=== PATIENT | female | born 1935 | race American Indian/Alaskan Native ===

== ENCOUNTER 2017-05-30 15:52 | Inpatient (IN) | payer MEDICARE ==
[2017-05-30] MEDS ORDERED: NACL 0.9% 1000 ML 1,000 ML ONE ×3 (16:19→16:20)
[2017-05-30] MEDS ORDERED: VANCOMYCIN/NS 1 GM/250 ML 1 GM/250 ML BAG IV ONE (16:32)
[2017-05-30] MEDS ORDERED: NACL 0.9% 1000 ML 1,000 ML IV ONE ×2 (16:32→18:19)
[2017-05-30] MEDS ORDERED: LEVAQUIN 750MG/150ML 750 MG/150 ML BAG IV ONE (16:32)
[2017-05-30] MEDS ORDERED: TYLENOL FEEDTUBE ONE (16:54)
--- NOTE | 2017-05-30 16:56 | Emergency Department Report ---
ED Altered Mental Status HPI - General Chief Complaint: Altered Mental Status Stated Complaint: AMS/LOW BLOOD PRESSURE/HIGH BLOOD SUGAR Time Seen by Provider: 05/30/17 16:13 Source: EMS, old records reviewed (creatinine 0.8 04/15/2017. Previous admission reviewed) Mode of arrival: Stretcher Limitations: Altered Mental Status, Physical Limitation - History of Present Illness Initial Comments: 81-year-old female past medical history of chronic COPD with 2.5 L oxygen at home, CAD status post CABG, CHF, hypertension, dyslipidemia, PEG placement, insulin-dependent diabetes presents to the hospital with altered mental status and fever. Patient has been on Cipro twice a day since May 20 for UTI via PEG tube. Today patient had elevated blood sugar at [facility] with diminished mental status. At her baseline she makes eye contact and speaks. She also has a sacral decubitus wound. Patient is DO NOT RESUSCITATE ( signed 05/04/17) her wishes as per daughter. Patient was recently admitted here 03/30 until 04/19 with acute respiratory failure secondary to hypercapnia for COPD and severe acidemia. Patient had a cardiac arrest x2 during admission and had prolonged course of intubation and ATN renal failure, echo showed preserved EF but severe pulmonary hypertension. Patient had Escherichia coli urine that was resistant to Levaquin, tetracycline, Bactrim, cipro, Unasyn and ampicillin. It was sensitive to cephalosporins, ertapenem, imipenem, macrobid, Zosyn, tigecycline, tobramycin, and gentamicin. Patient is unable to communicate due to current mental status. Daughter at the bedside and agrees with DO NOT RESUSCITATE status including no intubation or central line. Case also briefly discussed with Dr. Avila who agrees that DO NOT RESUSCITATE is no intubation or central line. - Related Data Home Medications Medication Instructions Recorded Confirmed Last Taken Clopidogrel Bisulfate [Plavix] 75 mg PO DAILY 12/25/15 03/30/17 12/24/15 Insulin Glargine [Lantus VIAL] 20 unit SUB-Q QHS 12/25/15 03/30/17 Unknown Metoprolol [Lopressor TAB] 50 mg PO DAILY 12/25/15 03/30/17 Unknown Potassium Chloride [K-Dur] 20 meq PO QDAY 12/25/15 03/30/17 Unknown Rosuvastatin (Nf) [Crestor] 20 mg PO QDAY 12/25/15 03/30/17 Unknown Furosemide [Lasix TAB] 20 mg PO PRN PRN 03/30/17 03/30/17 Unknown Gabapentin [Neurontin] 300 mg PO TID 03/30/17 03/30/17 Unknown Losartan [Cozaar] 50 mg PO QDAY 03/30/17 03/30/17 Unknown Montelukast [Singulair] 10 mg PO QHS 03/30/17 03/30/17 Unknown amLODIPine [Norvasc] 5 mg PO QDAY 03/30/17 03/30/17 Unknown Previous Rx's Medication Instructions Recorded Last Taken Type ALBUTEROL Inhaler [ProAir HFA 2 puff IH QID PRN #1 inhalation 12/27/15 Unknown Rx Inhaler] Fluticasone/Salmeterol [Advair 1 puff IH BID #1 disk.w.dev 12/27/15 Unknown Rx Diskus 100-50 mcg] Allergies Allergy/AdvReac Type Severity Reaction Status Date / Time Penicillins Allergy Unknown Verified 12/25/15 19:51 terbinafine HCl Allergy Unknown Verified 12/25/15 19:51 [From Lamisil] ED Review of Systems ROS: Stated complaint: AMS/LOW BLOOD PRESSURE/HIGH BLOOD SUGAR Other details as noted in HPI Comment: Unobtainable due to pts medical conditions (altered, nonverbal currently) ED Past Medical Hx - Past Medical History Hx Hypertension: Yes Hx Congestive Heart Failure: Yes Hx Diabetes: Yes Hx Deep Vein Thrombosis: No Hx COPD: Yes - Surgical History Hx Coronary Stent: Yes (7 stents placed 2010) Hx Open Heart Surgery: Yes Hx Pacemaker: No Hx Internal Defibrillator: No Additional Surgical History: 7 heart stents - Social History Smoking Status: Former Smoker Substance Use Type: None, Alcohol - Medications Home Medications: Home Medications Medication Instructions Recorded Confirmed Last Taken Type Clopidogrel Bisulfate [Plavix] 75 mg PO DAILY 12/25/15 03/30/17 12/24/15 History Insulin Glargine [Lantus VIAL] 20 unit SUB-Q QHS 12/25/15 03/30/17 Unknown History Metoprolol [Lopressor TAB] 50 mg PO DAILY 12/25/15 03/30/17 Unknown History Potassium Chloride [K-Dur] 20 meq PO QDAY 12/25/15 03/30/17 Unknown History Rosuvastatin (Nf) [Crestor] 20 mg PO QDAY 12/25/15 03/30/17 Unknown History ALBUTEROL Inhaler [ProAir HFA 2 puff IH QID PRN #1 inhalation 12/27/15 03/30/17 Unknown Rx Inhaler] Fluticasone/Salmeterol [Advair 1 puff IH BID #1 disk.w.dev 12/27/15 03/30/17 Unknown Rx Diskus 100-50 mcg] Furosemide [Lasix TAB] 20 mg PO PRN PRN 03/30/17 03/30/17 Unknown History Gabapentin [Neurontin] 300 mg PO TID 03/30/17 03/30/17 Unknown History Losartan [Cozaar] 50 mg PO QDAY 03/30/17 03/30/17 Unknown History Montelukast [Singulair] 10 mg PO QHS 03/30/17 03/30/17 Unknown History amLODIPine [Norvasc] 5 mg PO QDAY 03/30/17 03/30/17 Unknown History ED Physical Exam - General Limitations: Altered Mental Status, Physical Limitation - Other Other exam information: General: Patient is lethargic, no response to pain Head exam: Atraumatic, normocephalic Eyes exam: Normal appearance, pupils equal reactive to light ENT: Dry mucous membrane Neck exam: Normal inspection Respiratory exam: Clear breath sounds bilaterally Cardiovascular: Regular rate and rhythm Abdomen: Soft, nondistended, and nontender, positive peg Normal bowel signs Extremity: No spontaneous movement, no deformity Back: Normal Inspection Neurologic: Lethargic, patient is not withdraw to pain, no spontaneous movement of extremities. Psychiatric: normal affect, normal mood Skin: Sacral decubitus stage II with yellow exudate 5 x 4 cm ED Course Vital Signs 05/30/17 05/30/17 05/30/17 13:57 14:00 14:16 Temperature Pulse Rate 73 69 77 Respiratory 11 L 14 17 Rate Blood Pressure 115/73 115/73 118/73 Blood Pressure [Right] O2 Sat by Pulse 95 98 96 Oximetry 05/30/17 05/30/17 05/30/17 16:07 16:15 16:31 Temperature Pulse Rate 102 H 99 H 95 H Respiratory 35 H 35 H 28 H Rate Blood Pressure 82/44 118/73 Blood Pressure [Right] O2 Sat by Pulse Oximetry 05/30/17 05/30/17 05/30/17 16:36 16:55 17:05 Temperature 100.3 F H Pulse Rate 92 H 90 Respiratory 31 H 21 19 Rate Blood Pressure Blood Pressure 82/44 98/47 102/45 [Right] O2 Sat by Pulse 2 L 54 L Oximetry 05/30/17 05/30/17 05/30/17 17:30 18:47 19:17 Temperature 100.3 F H Pulse Rate 89 97 H Respiratory 19 21 23 Rate Blood Pressure Blood Pressure 131/56 127/61 [Right] O2 Sat by Pulse Oximetry 05/30/17 19:18 Temperature Pulse Rate 96 H Respiratory Rate Blood Pressure Blood Pressure [Right] O2 Sat by Pulse Oximetry - Reevaluation(s) Reevaluation #1: 05/30/17 17:18 BP is improving with 1 L normal saline. Systolic above 100. Reevaluation #2: 05/30/17 17:50 Systolic blood pressure remains above 100 after 1 L of normal saline. She patient is now making eye contact and trying to speak. - ABG Interpretation Ph: 7.48 PCO2: 43 PO2: 248 Bicarbonate: 35 Interpretation: normal Additional Comments: ABG performed on nonrebreather. Oxygen changed to venti mask with 31% O2 ( orange) after abg results - Lab Data Result diagrams: 05/30/17 17:46 05/30/17 17:46 Lab Results 05/30/17 05/30/17 05/30/17 Range/Units 17:37 17:46 17:46 WBC 28.1 H (4.5-11.0) K/mm3 RBC 3.45 L (3.65-5.03) M/mm3 Hgb 10.5 (10.1-14.3) gm/dl Hct 35.0 (30.3-42.9) % MCV 101 H (79-97) fl MCH 30 (28-32) pg MCHC 30 (30-34) % RDW 19.6 H (13.2-15.2) % Plt Count 356 (140-440) K/mm3 Add Manual Diff Complete Total Counted 200 Seg Neuts % (Manual) 54.0 (40.0-70.0) % Band Neutrophils % 21.5 % Lymphocytes % (Manual) 16.5 (13.4-35.0) % Reactive Lymphs % (Man) 0 % Monocytes % (Manual) 8.0 H (0.0-7.3) % Eosinophils % (Manual) 0 (0.0-4.3) % Basophils % (Manual) 0 (0.0-1.8) % Metamyelocytes % 0 % Myelocytes % 0 % Promyelocytes % 0 % Blast Cells % 0 % Nucleated RBC % 2.0 H (0.0-0.9) % Seg Neutrophils # Man 15.2 H (1.8-7.7) K/mm3 Band Neutrophils # 6.0 K/mm3 Lymphocytes # (Manual) 4.6 (1.2-5.4) K/mm3 Abs React Lymphs (Man) 0.0 K/mm3 Monocytes # (Manual) 2.2 H (0.0-0.8) K/mm3 Eosinophils # (Manual) 0.0 (0.0-0.4) K/mm3 Basophils # (Manual) 0.0 (0.0-0.1) K/mm3 Metamyelocytes # 0.0 K/mm3 Myelocytes # 0.0 K/mm3 Promyelocytes # 0.0 K/mm3 Blast Cells # 0.0 K/mm3 WBC Morphology Not Reportable Hypersegmented Neuts Not Reportable Hyposegmented Neuts Not Reportable Hypogranular Neuts Not Reportable Smudge Cells Not Reportable Toxic Granulation Not Reportable Toxic Vacuolation Not Reportable Dohle Bodies Not Reportable Pelger-Huet Anomaly Not Reportable Carlos Rods Not Reportable Platelet Estimate Consistent w auto Clumped Platelets Not Reportable Plt Clumps, EDTA Not Reportable Large Platelets Few Giant Platelets Few Platelet Satelliting Not Reportable Plt Morphology Comment Not Reportable RBC Morphology Not Reportable Dimorphic RBCs Not Reportable Polychromasia Few Hypochromasia 2+ Poikilocytosis 1+ Anisocytosis 1+ Microcytosis Not Reportable Macrocytosis Not Reportable Spherocytes Not Reportable Pappenheimer Bodies Not Reportable Sickle Cells Not Reportable Target Cells Not Reportable Tear Drop Cells Not Reportable Ovalocytes 1+ Helmet Cells Not Reportable Ortiz-Riverlea Bodies Not Reportable [place] Rings Not Reportable [place] Cells Not Reportable Bite Cells Not Reportable Crenated Cell Not Reportable Elliptocytes Not Reportable Acanthocytes (Spur) Not Reportable Rouleaux Not Reportable Hemoglobin C Crystals Not Reportable Schistocytes Not Reportable Malaria parasites Not Reportable Rhys Bodies Not Reportable Hem Pathologist Commnt No PT (12.2-14.9) Sec. INR (0.87-1.13) APTT (24.2-36.6) Sec. POC ABG pH 7.498 H (7.35-7.45) POC ABG pCO2 45.3 H (35-45) POC ABG pO2 248 H (80-105) POC ABG HCO3 35.1 POC ABG Total CO2 36 POC ABG O2 Sat 100 POC ABG Base Excess 12 VBG pH (7.320-7.420) FiO2 100 % Sodium 168 H* (137-145) mmol/L Potassium 4.8 (3.6-5.0) mmol/L Chloride 121.7 H (98-107) mmol/L Carbon Dioxide 29 (22-30) mmol/L Anion Gap 22 mmol/L BUN 88 H (7-17) mg/dL Creatinine 1.6 H (0.7-1.2) mg/dL Estimated GFR 37 ml/min BUN/Creatinine Ratio 55 % Glucose 296 H (65-100) mg/dL Lactic Acid (0.7-2.0) mmol/L Calcium 8.6 (8.4-10.2) mg/dL Magnesium (1.7-2.3) mg/dL Total Bilirubin 0.20 (0.1-1.2) mg/dL AST 65 H (5-40) units/L ALT 43 (7-56) units/L Alkaline Phosphatase 114 (35-129) units/L Total Creatine Kinase 982 H (30-135) units/L CK-MB (CK-2) 3.7 (0.0-4.0) ng/mL CK-MB (CK-2) Rel Index 0.3 (0-4) Troponin T 0.210 H* (0.00-0.029) ng/mL Total Protein 6.7 (6.3-8.2) g/dL Albumin 3.0 L (3.9-5) g/dL Albumin/Globulin Ratio 0.8 % Triglycerides 241 H (2-149) mg/dL Cholesterol 107 (50-199) mg/dL LDL Cholesterol Direct 20 L (50-130) mg/dL HDL Cholesterol 39 L (40-59) mg/dL Cholesterol/HDL Ratio 2.74 % Urine Color (Yellow) Urine Turbidity (Clear) Urine pH (5.0-7.0) Ur Specific [place] (1.003-1.030) Urine Protein (Negative) mg/dL Urine Glucose (UA) (Negative) mg/dL Urine Ketones (Negative) mg/dL Urine Blood (Negative) Urine Nitrite (Negative) Urine Bilirubin (Negative) Urine Urobilinogen (<2.0) mg/dL Ur Leukocyte Esterase (Negative) Urine WBC (Auto) (0.0-6.0) /HPF Urine RBC (Auto) (0.0-6.0) /HPF U Epithel Cells (Auto) (0-13.0) /HPF Urine Bacteria (Auto) (Negative) /HPF Urine WBC Clumps /HPF Calcium Oxalate Crystal Urine Mucus /HPF 05/30/17 05/30/17 05/30/17 Range/Units 17:46 17:46 17:46 WBC (4.5-11.0) K/mm3 RBC (3.65-5.03) M/mm3 Hgb (10.1-14.3) gm/dl Hct (30.3-42.9) % MCV (79-97) fl MCH (28-32) pg MCHC (30-34) % RDW (13.2-15.2) % Plt Count (140-440) K/mm3 Add Manual Diff Total Counted Seg Neuts % (Manual) (40.0-70.0) % Band Neutrophils % % Lymphocytes % (Manual) (13.4-35.0) % Reactive Lymphs % (Man) % Monocytes % (Manual) (0.0-7.3) % Eosinophils % (Manual) (0.0-4.3) % Basophils % (Manual) (0.0-1.8) % Metamyelocytes % % Myelocytes % % Promyelocytes % % Blast Cells % % Nucleated RBC % (0.0-0.9) % Seg Neutrophils # Man (1.8-7.7) K/mm3 Band Neutrophils # K/mm3 Lymphocytes # (Manual) (1.2-5.4) K/mm3 Abs React Lymphs (Man) K/mm3 Monocytes # (Manual) (0.0-0.8) K/mm3 Eosinophils # (Manual) (0.0-0.4) K/mm3 Basophils # (Manual) (0.0-0.1) K/mm3 Metamyelocytes # K/mm3 Myelocytes # K/mm3 Promyelocytes # K/mm3 Blast Cells # K/mm3 WBC Morphology Hypersegmented Neuts Hyposegmented Neuts Hypogranular Neuts Smudge Cells Toxic Granulation Toxic Vacuolation Dohle Bodies Pelger-Huet Anomaly Carlos Rods Platelet Estimate Clumped Platelets Plt Clumps, EDTA Large Platelets Giant Platelets Platelet Satelliting Plt Morphology Comment RBC Morphology Dimorphic RBCs Polychromasia Hypochromasia Poikilocytosis Anisocytosis Microcytosis Macrocytosis Spherocytes Pappenheimer Bodies Sickle Cells Target Cells Tear Drop Cells Ovalocytes Helmet Cells Ortiz-Riverlea Bodies [place] Rings [place] Cells Bite Cells Crenated Cell Elliptocytes Acanthocytes (Spur) Rouleaux Hemoglobin C Crystals Schistocytes Malaria parasites Rhys Bodies Hem Pathologist Commnt PT 15.8 H (12.2-14.9) Sec. INR 1.20 H (0.87-1.13) APTT 34.0 (24.2-36.6) Sec. POC ABG pH (7.35-7.45) POC ABG pCO2 (35-45) POC ABG pO2 (80-105) POC ABG HCO3 POC ABG Total CO2 POC ABG O2 Sat POC ABG Base Excess VBG pH 7.290 L (7.320-7.420) FiO2 % Sodium (137-145) mmol/L Potassium (3.6-5.0) mmol/L Chloride (98-107) mmol/L Carbon Dioxide (22-30) mmol/L Anion Gap mmol/L BUN (7-17) mg/dL Creatinine (0.7-1.2) mg/dL Estimated GFR ml/min BUN/Creatinine Ratio % Glucose (65-100) mg/dL Lactic Acid 3.40 H* (0.7-2.0) mmol/L Calcium (8.4-10.2) mg/dL Magnesium (1.7-2.3) mg/dL Total Bilirubin (0.1-1.2) mg/dL AST (5-40) units/L ALT (7-56) units/L Alkaline Phosphatase (35-129) units/L Total Creatine Kinase (30-135) units/L CK-MB (CK-2) (0.0-4.0) ng/mL CK-MB (CK-2) Rel Index (0-4) Troponin T (0.00-0.029) ng/mL Total Protein (6.3-8.2) g/dL Albumin (3.9-5) g/dL Albumin/Globulin Ratio % Triglycerides (2-149) mg/dL Cholesterol (50-199) mg/dL LDL Cholesterol Direct (50-130) mg/dL HDL Cholesterol (40-59) mg/dL Cholesterol/HDL Ratio % Urine Color (Yellow) Urine Turbidity (Clear) Urine pH (5.0-7.0) Ur Specific [place] (1.003-1.030) Urine Protein (Negative) mg/dL Urine Glucose (UA) (Negative) mg/dL Urine Ketones (Negative) mg/dL Urine Blood (Negative) Urine Nitrite (Negative) Urine Bilirubin (Negative) Urine Urobilinogen (<2.0) mg/dL Ur Leukocyte Esterase (Negative) Urine WBC (Auto) (0.0-6.0) /HPF Urine RBC (Auto) (0.0-6.0) /HPF U Epithel Cells (Auto) (0-13.0) /HPF Urine Bacteria (Auto) (Negative) /HPF Urine WBC Clumps /HPF Calcium Oxalate Crystal Urine Mucus /HPF 05/30/17 05/30/17 Range/Units 17:46 18:17 WBC (4.5-11.0) K/mm3 RBC (3.65-5.03) M/mm3 Hgb (10.1-14.3) gm/dl Hct (30.3-42.9) % MCV (79-97) fl MCH (28-32) pg MCHC (30-34) % RDW (13.2-15.2) % Plt Count (140-440) K/mm3 Add Manual Diff Total Counted Seg Neuts % (Manual) (40.0-70.0) % Band Neutrophils % % Lymphocytes % (Manual) (13.4-35.0) % Reactive Lymphs % (Man) % Monocytes % (Manual) (0.0-7.3) % Eosinophils % (Manual) (0.0-4.3) % Basophils % (Manual) (0.0-1.8) % Metamyelocytes % % Myelocytes % % Promyelocytes % % Blast Cells % % Nucleated RBC % (0.0-0.9) % Seg Neutrophils # Man (1.8-7.7) K/mm3 Band Neutrophils # K/mm3 Lymphocytes # (Manual) (1.2-5.4) K/mm3 Abs React Lymphs (Man) K/mm3 Monocytes # (Manual) (0.0-0.8) K/mm3 Eosinophils # (Manual) (0.0-0.4) K/mm3 Basophils # (Manual) (0.0-0.1) K/mm3 Metamyelocytes # K/mm3 Myelocytes # K/mm3 Promyelocytes # K/mm3 Blast Cells # K/mm3 WBC Morphology Hypersegmented Neuts Hyposegmented Neuts Hypogranular Neuts Smudge Cells Toxic Granulation Toxic Vacuolation Dohle Bodies Pelger-Huet Anomaly Carlos Rods Platelet Estimate Clumped Platelets Plt Clumps, EDTA Large Platelets Giant Platelets Platelet Satelliting Plt Morphology Comment RBC Morphology Dimorphic RBCs Polychromasia Hypochromasia Poikilocytosis Anisocytosis Microcytosis Macrocytosis Spherocytes Pappenheimer Bodies Sickle Cells Target Cells Tear Drop Cells Ovalocytes Helmet Cells Ortiz-Riverlea Bodies [place] Rings [place] Cells Bite Cells Crenated Cell Elliptocytes Acanthocytes (Spur) Rouleaux Hemoglobin C Crystals Schistocytes Malaria parasites Rhys Bodies Hem Pathologist Commnt PT (12.2-14.9) Sec. INR (0.87-1.13) APTT (24.2-36.6) Sec. POC ABG pH (7.35-7.45) POC ABG pCO2 (35-45) POC ABG pO2 (80-105) POC ABG HCO3 POC ABG Total CO2 POC ABG O2 Sat POC ABG Base Excess VBG pH (7.320-7.420) FiO2 % Sodium (137-145) mmol/L Potassium (3.6-5.0) mmol/L Chloride (98-107) mmol/L Carbon Dioxide (22-30) mmol/L Anion Gap mmol/L BUN (7-17) mg/dL Creatinine (0.7-1.2) mg/dL Estimated GFR ml/min BUN/Creatinine Ratio % Glucose (65-100) mg/dL Lactic Acid (0.7-2.0) mmol/L Calcium (8.4-10.2) mg/dL Magnesium 3.50 H (1.7-2.3) mg/dL Total Bilirubin (0.1-1.2) mg/dL AST (5-40) units/L ALT (7-56) units/L Alkaline Phosphatase (35-129) units/L Total Creatine Kinase (30-135) units/L CK-MB (CK-2) (0.0-4.0) ng/mL CK-MB (CK-2) Rel Index (0-4) Troponin T (0.00-0.029) ng/mL Total Protein (6.3-8.2) g/dL Albumin (3.9-5) g/dL Albumin/Globulin Ratio % Triglycerides (2-149) mg/dL Cholesterol (50-199) mg/dL LDL Cholesterol Direct (50-130) mg/dL HDL Cholesterol (40-59) mg/dL Cholesterol/HDL Ratio % Urine Color [place] (Yellow) Urine Turbidity Clear (Clear) Urine pH 5.0 (5.0-7.0) Ur Specific [place] 1.025 (1.003-1.030) Urine Protein 100 mg/dl (Negative) mg/dL Urine Glucose (UA) 50 (Negative) mg/dL Urine Ketones Neg (Negative) mg/dL Urine Blood Neg (Negative) Urine Nitrite Neg (Negative) Urine Bilirubin Neg (Negative) Urine Urobilinogen 2.0 (<2.0) mg/dL Ur Leukocyte Esterase Lg (Negative) Urine WBC (Auto) 73.0 H (0.0-6.0) /HPF Urine RBC (Auto) 12.0 (0.0-6.0) /HPF U Epithel Cells (Auto) 4.0 (0-13.0) /HPF Urine Bacteria (Auto) 4+ (Negative) /HPF Urine WBC Clumps 2+ /HPF Calcium Oxalate Crystal 1+ Urine Mucus 3+ /HPF - EKG Data -: EKG Interpreted by Or EKG shows normal: sinus rhythm, axis (qrs 4), QRS complexes (103), ST-T waves ( no stemi) Rate: normal (90) When compared to previous EKG there are: no significant change (compared to 03/31) - Radiology Data Radiology results: image reviewed (chest x-ray: No acute findings, previous CABG , mild increased interstitial markings. No infiltrate (read by me)) - Medical Decision Making sepsis without septic shock: Levaquin and vancomycin ordered initially for sepsis/source was being identified. After review of urine sensitivities from April gentamicin was added to cover for fluoroquinolone resistant UTI given recent history of Cipro treated UTI at the [facility]. cxr neg for infiltrate -no signs of C02 retention or significant hypoxia at this time. stable on venturi mask (orange) -1 L of normal saline ED also included 1 normal saline followed by 120 mL per hour order -asa 325mg (for trop elevation), tylenol (for fever) via feedign tube -mild ck elevation, ivf initiated -Mental status and BP improving with fluids -elevated trop likely due to ARF, no stemi on ekg but repeat trop indicated. -ARF likely related to dehydration vs sepsis given elevated BUN and NA - Differential Diagnosis UTI, sepsis, pneumonia, DKA Critical Care Time: Yes Critical care time in (mins) excluding proc time.: 35 Critical care attestation.: If time is entered above; I have spent that time in minutes in the direct care of this critically ill patient, excluding procedure time. ED Disposition Clinical Impression: Sepsis, Diabetes, Hx of CABG, Altered mental status, Dehydration, Acute renal insufficiency, Elevated troponin, Elevated lactic acid level, Elevated CK, DNR ( do not resuscitate), UTI (urinary tract infection) Disposition: DC-09 OP ADMIT IP TO THIS HOSP Is pt being admited?: Yes Condition: Stable Time of Disposition: 18:26 (Dr Salinas/hospitalist)
[2017-05-30 17:38] LABS: ISTAT Base Excess 12; ISTAT HCO3 35.1; ISTAT PCO2 45.3 (35-45); ISTAT PH 7.498 (7.35-7.45); ISTAT PO2 248 (80-105); ISTAT SO2 100; ISTAT TCO2 36
[2017-05-30 17:54] LABS: Mean Corpuscular HGB Conc 30 % (30-34); Mean Corpuscular Hemoglobin 30 pg (28-32); Mean Corpuscular Volume 101 fl (79-97); Platelet Count 356 K/mm3 (140-440); Red Blood Count 3.45 M/mm3 (3.65-5.03); Red Cell Distribution Width 19.6 % (13.2-15.2)
--- NOTE | 2017-05-30 17:57 | XRay Report ---
FINAL REPORT EXAM: XR CHEST 1V AP HISTORY: hypotension, sepsis, ams TECHNIQUE: upright single view chest PRIORS: Comparison is December 25, 2015 FINDINGS: Cardiac and mediastinal contours are unremarkable. No focal pulmonary infiltrate is identified. No pleural fluid collection seen. Pulmonary vasculature is unremarkable. Sternotomy wires and surgical clips are noted. IMPRESSION: Negative single-view chest
[2017-05-30] MEDS ORDERED: VANCOMYCIN 1,750 MG in NACL 0.9% 500 ML 500 ML IV ONE (18:00)
[2017-05-30] MEDS ORDERED: GARAMYCIN 80 MG in NACL 0.9% 100 ML IV ONE (18:00)
[2017-05-30 18:04] LABS: INR 1.2 (0.87-1.13)
[2017-05-30 18:07] LABS: Creatine Kinase MB 3.7 ng/mL (0.0-4.0)
[2017-05-30 18:09] LABS: Albumin/Globulin Ratio 0.8 %; Bilirubin,Total 0.2 mg/dL (0.1-1.2); Calcium 8.6 mg/dL (8.4-10.2); Chloride 121.7 mmol/L (98-107); Potassium 4.8 mmol/L (3.6-5.0); Total Protein 6.7 g/dL (6.3-8.2)
[2017-05-30 18:10] LABS: Hemoglobin 10.5 gm/dl (10.1-14.3); White Blood Count 28.1 K/mm3 (4.5-11.0)
[2017-05-30] MEDS ORDERED: ASPIRIN FEEDTUBE ONE (18:22)
[2017-05-30 18:39] LABS: Basophils % (Manual) 0 % (0.0-1.8); Blastocytes % (Manual) 0 %
[2017-05-30 18:40] LABS: Eosinophils % (Manual) 0 % (0.0-4.3)
[2017-05-30 18:41] LABS: Anisocytosis 1+; Hypochromasia 2+; Ovalocytes 1+; Poikilocytosis 1+; Polychromasia Few
[2017-05-30 18:43] LABS: Diff Status Complete; Giant Platelets Few; Large Platelets Few; Platelet Estimate Consistent w Auto
[2017-05-30 19:32] LABS: Bacteria,Urine 4+ /HPF (Negative); Bilirubin,Urine NEG (Negative); Blood,Urine NEG (Negative); Ketones,Urine NEG (Negative); Leukocyte Esterase,Urine LG (Negative); Mucus,Urine 3+ /HPF; Nitrite,Urine NEG (Negative)
[2017-05-30] MEDS ORDERED: GARAMYCIN/NS 80 MG/100 ML 100 ML IV ONE (21:00)
[2017-05-30 21:11] LABS: Creatine Kinase MB 4.6 ng/mL (0.0-4.0)
[2017-05-30] MEDS ORDERED: TYLENOL PO PRN (21:30)
[2017-05-30] MEDS ORDERED: MILK OF MAGNESIA PO PRN (21:30)
[2017-05-30] MEDS ORDERED: DULCOLAX PR PRN (21:30)
[2017-05-30] MEDS ORDERED: ZOFRAN IV PRN (21:30)
[2017-05-31] MEDS ORDERED: D50W (25GM) Syringe IV PRN (00:28)
[2017-05-31] MEDS ORDERED: D50W (25GM) Vial IV PRN (00:42)
[2017-05-31] MEDS ORDERED: AZACTAM/NS 2 GM/100 ML 2 GM/100 ML VIAL IV ONE (01:00)
[2017-05-31] MEDS ORDERED: NACL 0.45% 1000 ML 1,000 ML IV SCH (01:00)
[2017-05-31] MEDS ORDERED: AZACTAM/NS 2 GM/100 ML 2 GM/100 ML VIAL IV SCH (01:00)
[2017-05-31] MEDS: MORPHINE IV PRN (02:08)
[2017-05-31] MEDS: NOVOLOG SUB-Q SCH ×2 (02:10→06:49)
--- NOTE | 2017-05-31 06:49 | History and Physical Report ---
History of Present Illness Date of admission: 05/30/17 21:30 Chief complaint: ams, hyperglycemia History of present illness: 81 year old woman who was previously in the hospital a few months ago. When she had COPD exacerbation requiring intubation. Sepsis due to UTI requiring presser is. She had multiple cardiac arrest. So for the Mtz brain injury. Patient was discharged to hospice. [facility]. What she has been since then. Patient has a peg tube. She is mostly bed-bound. She's on the grand Rehabilitation. As for her daughter she's been able to get on the exercise bike for 15 seconds. She has not walked. She is able to communicate with only a few words. Since being in the [facility] she developed a secret decubitus. And ulcers on her left toes. She's brought in today because she was more confused more altered and had very elevated glucose. Glucose as high as 500. THe [facility] has been rx her with levaquin for about 10 days for presumed UTI. Upon arrival in the ER she was hypotensive requiring multiple fluid boluses before blood pressure improved. Past History Past Medical History: other (Htn, dm, anoxic brain, copd on home o2, uti, dnr) Social history: no significant social history Family history: diabetes Medications and Allergies Allergies Allergy/AdvReac Type Severity Reaction Status Date / Time Penicillins Allergy Unknown Verified 12/25/15 19:51 terbinafine HCl Allergy Unknown Verified 12/25/15 19:51 [From Lamisil] Home Medications Medication Instructions Recorded Confirmed Last Taken Type Clopidogrel Bisulfate [Plavix] 75 mg PO DAILY 12/25/15 05/30/17 05/30/17 History Insulin Glargine [Lantus VIAL] 20 unit SUB-Q QHS 12/25/15 05/30/17 05/30/17 History Metoprolol [Lopressor TAB] 50 mg PO DAILY 12/25/15 05/30/17 05/30/17 History Potassium Chloride [K-Dur] 20 meq PO QDAY 12/25/15 05/30/17 05/30/17 History Rosuvastatin (Nf) [Crestor] 20 mg PO QDAY 12/25/15 05/30/17 05/30/17 History ALBUTEROL Inhaler [ProAir HFA 2 puff IH QID PRN #1 inhalation 12/27/15 05/30/17 05/30/17 Rx Inhaler] Fluticasone/Salmeterol [Advair 1 puff IH BID #1 disk.w.dev 12/27/15 05/30/17 Rx Diskus 100-50 mcg] Furosemide [Lasix TAB] 20 mg PO PRN PRN 03/30/17 05/30/17 05/30/17 History Losartan [Cozaar] 50 mg PO QDAY 03/30/17 05/30/17 05/30/17 History Montelukast [Singulair] 10 mg PO QHS 03/30/17 05/30/17 05/30/17 History amLODIPine [Norvasc] 5 mg PO QDAY 03/30/17 05/30/17 05/30/17 History Active Meds: Active Medications Acetaminophen (Tylenol) 650 mg PO Q4H PRN PRN Reason: Pain MILD(1-3)/Fever >100.5/DIALLO Arformoterol Tartrate (Brovana Nebu) 15 mcg IH Q12HRT [facility] Atorvastatin Calcium (Lipitor) 40 mg PO QHS [facility] Bisacodyl (Dulcolax) 10 mg MD QDAY PRN PRN Reason: Constipation unrelieved by MOM Budesonide (Pulmicort) 0.5 mg IH Q12HRT [facility] Clopidogrel Bisulfate (Plavix) 75 mg PO DAILY [facility] Dextrose (D50w (25gm) Vial) 25 gm IV PRN PRN PRN Reason: Hypoglycemia Enoxaparin Sodium (Lovenox) 40 mg SUB-Q QDAY [facility] Vancomycin HCl 1,250 mg/ (Sodium Chloride) 262.5 mls @ 166.667 mls/hr IV Q24H [facility] Sodium Chloride (Nacl 0.45% 1000 Ml) 1,000 mls @ 150 mls/hr IV DIRECT [facility] Stop: 06/03/17 00:59 Last Admin: 05/31/17 01:29 Dose: 150 mls/hr Aztreonam (Azactam/Ns 1 Gm/50 Ml) 1 gm in 50 mls @ 100 mls/hr IV Q8H [facility] Insulin Aspart (Novolog) 0 units SUB-Q Q6HR [facility] PRN Reason: Protocol Last Admin: 05/31/17 02:10 Dose: 3 units Insulin Detemir (Levemir) 20 units SUB-Q QHS [facility] Magnesium Hydroxide (Milk Of Magnesia) 30 ml PO Q4H PRN PRN Reason: Constipation Montelukast Sodium (Singulair) 10 mg PO QHS [facility] Morphine Sulfate (Morphine) 2 mg IV Q4H PRN PRN Reason: Pain, Moderate (4-6) Last Admin: 05/31/17 02:08 Dose: 2 mg Ondansetron HCl (Zofran) 4 mg IV Q8H PRN PRN Reason: N/V unrelieved by Reglan Review of Systems ROS unobtainable: due to mental status Exam - Constitutional Vitals: Temp Pulse Resp BP Pulse Ox 99.5 F 88 18 110/55 92 05/30/17 23:01 05/31/17 01:30 05/31/17 02:38 05/30/17 23:45 05/31/17 01:30 General appearance: Present: no acute distress, well-nourished - EENT Eyes: Present: PERRL ENT: hearing intact, clear oral mucosa (dry mm), other - Neck Neck: Present: supple, normal ROM - Respiratory Respiratory effort: normal Respiratory: bilateral: CTA - Cardiovascular Heart Sounds: Present: S1 & S2. Absent: rub, click - Extremities Extremities: pulses symmetrical, No edema Peripheral Pulses: within normal limits - Abdominal General gastrointestinal: Present: soft, non-tender, non-distended, normal bowel sounds Female genitourinary: Present: normal - Integumentary Integumentary: Present: dry. Absent: clear (sacral decub stage 2-3 does no appear infected, ulcers of Left 2nd to 5th toes on the dorsum) - Musculoskeletal Musculoskeletal: generalized weakness - Psychiatric Psychiatric: other (obtunded) - Neurologic Neurologic: other (obtunded) Results - Labs CBC & Chem 7: 06/04/17 04:28 06/04/17 06:50 Labs: Laboratory Last Values WBC 28.1 K/mm3 (4.5-11.0) H 05/30/17 17:46 RBC 3.45 M/mm3 (3.65-5.03) L 05/30/17 17:46 Hgb 10.5 gm/dl (10.1-14.3) 05/30/17 17:46 Hct 35.0 % (30.3-42.9) 05/30/17 17:46 MCV 101 fl (79-97) H 05/30/17 17:46 MCH 30 pg (28-32) 05/30/17 17:46 MCHC 30 % (30-34) 05/30/17 17:46 RDW 19.6 % (13.2-15.2) H 05/30/17 17:46 Plt Count 356 K/mm3 (140-440) 05/30/17 17:46 Add Manual Diff Complete 05/30/17 17:46 Total Counted 200 05/30/17 17:46 Seg Neuts % (Manual) 54.0 % (40.0-70.0) 05/30/17 17:46 Band Neutrophils % 21.5 % 05/30/17 17:46 Lymphocytes % (Manual) 16.5 % (13.4-35.0) 05/30/17 17:46 Reactive Lymphs % (Man) 0 % 05/30/17 17:46 Monocytes % (Manual) 8.0 % (0.0-7.3) H 05/30/17 17:46 Eosinophils % (Manual) 0 % (0.0-4.3) 05/30/17 17:46 Basophils % (Manual) 0 % (0.0-1.8) 05/30/17 17:46 Metamyelocytes % 0 % 05/30/17 17:46 Myelocytes % 0 % 05/30/17 17:46 Promyelocytes % 0 % 05/30/17 17:46 Blast Cells % 0 % 05/30/17 17:46 Nucleated RBC % 2.0 % (0.0-0.9) H 05/30/17 17:46 Seg Neutrophils # Man 15.2 K/mm3 (1.8-7.7) H 05/30/17 17:46 Band Neutrophils # 6.0 K/mm3 05/30/17 17:46 Lymphocytes # (Manual) 4.6 K/mm3 (1.2-5.4) 05/30/17 17:46 Abs React Lymphs (Man) 0.0 K/mm3 05/30/17 17:46 Monocytes # (Manual) 2.2 K/mm3 (0.0-0.8) H 05/30/17 17:46 Eosinophils # (Manual) 0.0 K/mm3 (0.0-0.4) 05/30/17 17:46 Basophils # (Manual) 0.0 K/mm3 (0.0-0.1) 05/30/17 17:46 Metamyelocytes # 0.0 K/mm3 05/30/17 17:46 Myelocytes # 0.0 K/mm3 05/30/17 17:46 Promyelocytes # 0.0 K/mm3 05/30/17 17:46 Blast Cells # 0.0 K/mm3 05/30/17 17:46 WBC Morphology Not Reportable 05/30/17 17:46 Hypersegmented Neuts Not Reportable 05/30/17 17:46 Hyposegmented Neuts Not Reportable 05/30/17 17:46 Hypogranular Neuts Not Reportable 05/30/17 17:46 Smudge Cells Not Reportable 05/30/17 17:46 Toxic Granulation Not Reportable 05/30/17 17:46 Toxic Vacuolation Not Reportable 05/30/17 17:46 Dohle Bodies Not Reportable 05/30/17 17:46 Pelger-Huet Anomaly Not Reportable 05/30/17 17:46 Carlos Rods Not Reportable 05/30/17 17:46 Platelet Estimate Consistent w auto 05/30/17 17:46 Clumped Platelets Not Reportable 05/30/17 17:46 Plt Clumps, EDTA Not Reportable 05/30/17 17:46 Large Platelets Few 05/30/17 17:46 Giant Platelets Few 05/30/17 17:46 Platelet Satelliting Not Reportable 05/30/17 17:46 Plt Morphology Comment Not Reportable 05/30/17 17:46 RBC Morphology Not Reportable 05/30/17 17:46 Dimorphic RBCs Not Reportable 05/30/17 17:46 Polychromasia Few 05/30/17 17:46 Hypochromasia 2+ 05/30/17 17:46 Poikilocytosis 1+ 05/30/17 17:46 Anisocytosis 1+ 05/30/17 17:46 Microcytosis Not Reportable 05/30/17 17:46 Macrocytosis Not Reportable 05/30/17 17:46 Spherocytes Not Reportable 05/30/17 17:46 Pappenheimer Bodies Not Reportable 05/30/17 17:46 Sickle Cells Not Reportable 05/30/17 17:46 Target Cells Not Reportable 05/30/17 17:46 Tear Drop Cells Not Reportable 05/30/17 17:46 Ovalocytes 1+ 05/30/17 17:46 Helmet Cells Not Reportable 05/30/17 17:46 Ortiz-[place] Bodies Not Reportable 05/30/17 17:46 [place] Rings Not Reportable 05/30/17 17:46 [place] Cells Not Reportable 05/30/17 17:46 Bite Cells Not Reportable 05/30/17 17:46 Crenated Cell Not Reportable 05/30/17 17:46 Elliptocytes Not Reportable 05/30/17 17:46 Acanthocytes (Spur) Not Reportable 05/30/17 17:46 Rouleaux Not Reportable 05/30/17 17:46 Hemoglobin C Crystals Not Reportable 05/30/17 17:46 Schistocytes Not Reportable 05/30/17 17:46 Malaria parasites Not Reportable 05/30/17 17:46 Rhys Bodies Not Reportable 05/30/17 17:46 Hem Pathologist Commnt No 05/30/17 17:46 PT 15.8 Sec. (12.2-14.9) H 05/30/17 17:46 INR 1.20 (0.87-1.13) H 05/30/17 17:46 APTT 34.0 Sec. (24.2-36.6) 05/30/17 17:46 POC ABG pH 7.498 (7.35-7.45) H 05/30/17 17:37 POC ABG pCO2 45.3 (35-45) H 05/30/17 17:37 POC ABG pO2 248 (80-105) H 05/30/17 17:37 POC ABG HCO3 35.1 05/30/17 17:37 POC ABG Total CO2 36 05/30/17 17:37 POC ABG O2 Sat 100 05/30/17 17:37 POC ABG Base Excess 12 05/30/17 17:37 VBG pH 7.290 (7.320-7.420) L 05/30/17 17:46 FiO2 100 % 05/30/17 17:37 Sodium 168 mmol/L (137-145) H* 05/30/17 17:46 Potassium 4.8 mmol/L (3.6-5.0) 05/30/17 17:46 Chloride 121.7 mmol/L (98-107) H 05/30/17 17:46 Carbon Dioxide 29 mmol/L (22-30) 05/30/17 17:46 Anion Gap 22 mmol/L 05/30/17 17:46 BUN 88 mg/dL (7-17) H 05/30/17 17:46 Creatinine 1.6 mg/dL (0.7-1.2) H 05/30/17 17:46 Estimated GFR 37 ml/min 05/30/17 17:46 BUN/Creatinine Ratio 55 % 05/30/17 17:46 Glucose 296 mg/dL (65-100) H 05/30/17 17:46 POC Glucose 308 (70-105) H 05/31/17 06:32 Lactic Acid 2.10 mmol/L (0.7-2.0) H* 05/30/17 20:35 Calcium 8.6 mg/dL (8.4-10.2) 05/30/17 17:46 Magnesium 3.50 mg/dL (1.7-2.3) H 05/30/17 17:46 Total Bilirubin 0.20 mg/dL (0.1-1.2) 05/30/17 17:46 AST 65 units/L (5-40) H 05/30/17 17:46 ALT 43 units/L (7-56) 05/30/17 17:46 Alkaline Phosphatase 114 units/L (35-129) 05/30/17 17:46 Total Creatine Kinase 1235 units/L (30-135) H 05/30/17 20:35 CK-MB (CK-2) 4.6 ng/mL (0.0-4.0) H 05/30/17 20:35 CK-MB (CK-2) Rel Index 0.3 (0-4) 05/30/17 20:35 Troponin T 0.181 ng/mL (0.00-0.029) H* 05/30/17 20:35 Total Protein 6.7 g/dL (6.3-8.2) 05/30/17 17:46 Albumin 3.0 g/dL (3.9-5) L 05/30/17 17:46 Albumin/Globulin Ratio 0.8 % 05/30/17 17:46 Triglycerides 241 mg/dL (2-149) H 05/30/17 17:46 Cholesterol 107 mg/dL (50-199) 05/30/17 17:46 LDL Cholesterol Direct 20 mg/dL (50-130) L 05/30/17 17:46 HDL Cholesterol 39 mg/dL (40-59) L 05/30/17 17:46 Cholesterol/HDL Ratio 2.74 % 05/30/17 17:46 Urine Color Madeline (Yellow) 05/30/17 18:17 Urine Turbidity Clear (Clear) 05/30/17 18:17 Urine pH 5.0 (5.0-7.0) 05/30/17 18:17 Ur Specific [place] 1.025 (1.003-1.030) 05/30/17 18:17 Urine Protein 100 mg/dl mg/dL (Negative) 05/30/17 18:17 Urine Glucose (UA) 50 mg/dL (Negative) 05/30/17 18:17 Urine Ketones Neg mg/dL (Negative) 05/30/17 18:17 Urine Blood Neg (Negative) 05/30/17 18:17 Urine Nitrite Neg (Negative) 05/30/17 18:17 Urine Bilirubin Neg (Negative) 05/30/17 18:17 Urine Urobilinogen 2.0 mg/dL (<2.0) 05/30/17 18:17 Ur Leukocyte Esterase Lg (Negative) 05/30/17 18:17 Urine WBC (Auto) 73.0 /HPF (0.0-6.0) H 05/30/17 18:17 Urine RBC (Auto) 12.0 /HPF (0.0-6.0) 05/30/17 18:17 U Epithel Cells (Auto) 4.0 /HPF (0-13.0) 05/30/17 18:17 Urine Bacteria (Auto) 4+ /HPF (Negative) 05/30/17 18:17 Urine WBC Clumps 2+ /HPF 05/30/17 18:17 Calcium Oxalate Crystal 1+ 05/30/17 18:17 Urine Mucus 3+ /HPF 05/30/17 18:17 - Imaging and Cardiology Chest x-ray: image reviewed (no infiltrate) Assessment and Plan Assessment and plan: 81F with sepsis, UTI, and DION Sepsis/UTI fup urine and blood cx continue abx ID consult DION/Vasomotor nephropathy -likely due to dehydration and ATN -continue IVF Hypernatremia -1/2NS and free water via PEG (will not D5w due to hyperglycemia) COPD oxygen dependent/chronic respiratory failure stable, not in exacerbation Sacral and Left 2nd to 5th toes ulcers decub, POA wound care consult DM type 2, uncontrolled continue long acting insulin along with SSI, should improve as infection improves DNR Plan discussed with daughter at the bedside
[2017-05-31 07:42] LABS: Mean Corpuscular HGB Conc 30 % (30-34); Mean Corpuscular Hemoglobin 31 pg (28-32); Mean Corpuscular Volume 103 fl (79-97); Platelet Count 273 K/mm3 (140-440); Red Blood Count 3.13 M/mm3 (3.65-5.03); Red Cell Distribution Width 19.2 % (13.2-15.2)
[2017-05-31 07:43] LABS: Hematocrit 32.4 % (30.3-42.9); Hemoglobin 9.7 gm/dl (10.1-14.3); White Blood Count 22.1 K/mm3 (4.5-11.0)
[2017-05-31 07:57] LABS: Calcium 7.9 mg/dL (8.4-10.2); Chloride 124.4 mmol/L (98-107); Potassium 4.4 mmol/L (3.6-5.0)
[2017-05-31] MEDS: BROVANA NEBU IH SCH ×2 (08:37→20:43)
[2017-05-31] MEDS: PULMICORT IH SCH ×2 (08:39→20:43)
[2017-05-31] MEDS ORDERED: AZACTAM/NS 1 GM/50 ML 1 GM/50 ML VIAL IV SCH (09:00)
[2017-05-31 09:41] LABS: Basophils % (Manual) 0 % (0.0-1.8); Blastocytes % (Manual) 0 %; Eosinophils % (Manual) 0 % (0.0-4.3); Nucleated Red Blood Cells 2.5 % (0.0-0.9); Schistocytes Few; Total Cells Counted Percent 3.5
[2017-05-31 09:42] LABS: Acanthocytes Rare; Anisocytosis 1+; Diff Status Complete; Hypochromasia 1+; Ovalocytes 1+; Poikilocytosis Few; Polychromasia Few
[2017-05-31] MEDS ORDERED: NON-FORMULARY (Rosuvastatin (Nf) 20 MG) PO SCH (10:00)
[2017-05-31] MEDS ORDERED: NON-FORMULARY (Fluticasone/Salmeterol [Advair Diskus 100-50 Mcg] 1 PUFF) IH SCH (10:00)
[2017-05-31] MEDS ORDERED: SIMPLE SYRUP FEEDTUBE PRN ×2 (10:05)
[2017-05-31] MEDS ORDERED: SODIUM BICARBONATE FEEDTUBE PRN (10:05)
[2017-05-31] MEDS ORDERED: PANCREAZE DR 10,500 UNIT FEEDTUBE PRN (10:05)
[2017-05-31] MEDS: PLAVIX PO SCH (10:19)
--- NOTE | 2017-05-31 13:27 | Progress Note ---
Assessment and Plan Assessment and plan: Patient is a 81-year-old woman whom I cared for during 2 cardiac arrest in 2016. It appears she was discharged to Hospice on 04/19/17 (Dr. Feng responsible for discharge summary) [facility] Hypotension, hypovolemia, which responded to normal saline but sodium level too high: ivf Severe hypernatremia: consult nephrology Sepsis/UTI: Iv abx, follow cultures DION/Vasomotor nephropathy-likely due to dehydration and ATN-continue IVF COPD with chronic hypoxic respiratory failure, oxygen dependent, stable, not in exacerbation Multiple decubiti pressure ulcers: see wound care pictures, Sacral and Left 2nd to 5th toes ulcers decub, POA DM type 2, uncontrolled: continue long acting insulin DNR poor prognosis The high probability of a clinically significant, sudden or life threatening deterioration of the [] system(s) required my full and direct attention, intervention and personal management. The aggregate critical care time was [34] minutes. This time is in addition to time spent performing reported procedures but includes the following: [] Data Review and interpretation [] Patient assessment and monitoring of vital signs [] Documentation [] Medication orders and management History Interval history: Patient was seen and examined. Follow-up on current diagnosis/ams. Low blood pressure is still an issue, normal saline stopped because sodium level 168. Imaging, nursing note, chart, labs and old chart reviewed. Patient not giving any issues. Hospitalist Physical - Physical exam Narrative exam: GEN: Ill-appearing, chronic debilitated, quite alert and confused HEENT: NCAT, EOMI, PERRL, OP Clear NECK: supple, no adenopathy, no thyromegaly, no JVD CVS/HEART: RRR, NORMAL S1S2, NO JVD, pulses present bilaterally CHEST/LUNGS: Symmetrical chest expansion, good air entry bilaterally GI/Abdomen: soft, NTND, good bowel sounds, no guarding or rebound /Bladder: no suprapubic tenderness, no CVA or paraspinal tenderness EXT/Skin: no c/c/e, no obvious rash MSK: FROM x 4 Neuro: CN 2-12 grossly intact, no new focal deficits Psych: Anxious - Constitutional Vitals: Temp Pulse Resp BP Pulse Ox 97.9 F 96 H 20 82/34 98 05/31/17 08:00 05/31/17 09:08 05/31/17 09:08 05/31/17 08:00 05/31/17 09:10 Results - Labs CBC & Chem 7: 05/31/17 07:23 05/31/17 07:23 Labs: Laboratory Last Values WBC 22.1 K/mm3 (4.5-11.0) H 05/31/17 07:23 RBC 3.13 M/mm3 (3.65-5.03) L 05/31/17 07:23 Hgb 9.7 gm/dl (10.1-14.3) L 05/31/17 07:23 Hct 32.4 % (30.3-42.9) 05/31/17 07:23 MCV 103 fl (79-97) H 05/31/17 07:23 MCH 31 pg (28-32) 05/31/17 07:23 MCHC 30 % (30-34) 05/31/17 07:23 RDW 19.2 % (13.2-15.2) H 05/31/17 07:23 Plt Count 273 K/mm3 (140-440) 05/31/17 07:23 Add Manual Diff Complete 05/31/17 07:23 Total Counted 200 05/31/17 07:23 Seg Neuts % (Manual) 80.5 % (40.0-70.0) H 05/31/17 07:23 Band Neutrophils % 9.0 % 05/31/17 07:23 Lymphocytes % (Manual) 7.0 % (13.4-35.0) L 05/31/17 07:23 Reactive Lymphs % (Man) 0 % 05/31/17 07:23 Monocytes % (Manual) 3.5 % (0.0-7.3) 05/31/17 07:23 Eosinophils % (Manual) 0 % (0.0-4.3) 05/31/17 07:23 Basophils % (Manual) 0 % (0.0-1.8) 05/31/17 07:23 Metamyelocytes % 0 % 05/31/17 07:23 Myelocytes % 0 % 05/31/17 07:23 Promyelocytes % 0 % 05/31/17 07:23 Blast Cells % 0 % 05/31/17 07:23 Nucleated RBC % 2.5 % (0.0-0.9) H 05/31/17 07:23 Seg Neutrophils # Man 17.8 K/mm3 (1.8-7.7) H 05/31/17 07:23 Band Neutrophils # 2.0 K/mm3 05/31/17 07:23 Lymphocytes # (Manual) 1.5 K/mm3 (1.2-5.4) 05/31/17 07:23 Abs React Lymphs (Man) 0.0 K/mm3 05/31/17 07:23 Monocytes # (Manual) 0.8 K/mm3 (0.0-0.8) 05/31/17 07:23 Eosinophils # (Manual) 0.0 K/mm3 (0.0-0.4) 05/31/17 07:23 Basophils # (Manual) 0.0 K/mm3 (0.0-0.1) 05/31/17 07:23 Metamyelocytes # 0.0 K/mm3 05/31/17 07:23 Myelocytes # 0.0 K/mm3 05/31/17 07:23 Promyelocytes # 0.0 K/mm3 05/31/17 07:23 Blast Cells # 0.0 K/mm3 05/31/17 07:23 WBC Morphology Not Reportable 05/31/17 07:23 Hypersegmented Neuts Not Reportable 05/31/17 07:23 Hyposegmented Neuts Not Reportable 05/31/17 07:23 Hypogranular Neuts Not Reportable 05/31/17 07:23 Smudge Cells Not Reportable 05/31/17 07:23 Toxic Granulation Not Reportable 05/31/17 07:23 Toxic Vacuolation Not Reportable 05/31/17 07:23 Dohle Bodies Not Reportable 05/31/17 07:23 Pelger-Huet Anomaly Not Reportable 05/31/17 07:23 Carlos Rods Not Reportable 05/31/17 07:23 Platelet Estimate Appears normal 05/31/17 07:23 Clumped Platelets Not Reportable 05/31/17 07:23 Plt Clumps, EDTA Not Reportable 05/31/17 07:23 Large Platelets Not Reportable 05/31/17 07:23 Giant Platelets Not Reportable 05/31/17 07:23 Platelet Satelliting Not Reportable 05/31/17 07:23 Plt Morphology Comment Not Reportable 05/31/17 07:23 RBC Morphology Not Reportable 05/31/17 07:23 Dimorphic RBCs Not Reportable 05/31/17 07:23 Polychromasia Few 05/31/17 07:23 Hypochromasia 1+ 05/31/17 07:23 Poikilocytosis Few 05/31/17 07:23 Anisocytosis 1+ 05/31/17 07:23 Microcytosis Not Reportable 05/31/17 07:23 Macrocytosis Not Reportable 05/31/17 07:23 Spherocytes Not Reportable 05/31/17 07:23 Pappenheimer Bodies Not Reportable 05/31/17 07:23 Sickle Cells Not Reportable 05/31/17 07:23 Target Cells Not Reportable 05/31/17 07:23 Tear Drop Cells Not Reportable 05/31/17 07:23 Ovalocytes 1+ 05/31/17 07:23 Helmet Cells Not Reportable 05/31/17 07:23 [place] Bodies Not Reportable 05/31/17 07:23 [place] Rings Not Reportable 05/31/17 07:23 [place] Cells Not Reportable 05/31/17 07:23 Bite Cells Not Reportable 05/31/17 07:23 Crenated Cell Not Reportable 05/31/17 07:23 Elliptocytes Not Reportable 05/31/17 07:23 Acanthocytes (Spur) Rare 05/31/17 07:23 Rouleaux Not Reportable 05/31/17 07:23 Hemoglobin C Crystals Not Reportable 05/31/17 07:23 Schistocytes Few 05/31/17 07:23 Malaria parasites Not Reportable 05/31/17 07:23 Rhys Bodies Not Reportable 05/31/17 07:23 Hem Pathologist Commnt No 05/31/17 07:23 PT 15.8 Sec. (12.2-14.9) H 05/30/17 17:46 INR 1.20 (0.87-1.13) H 05/30/17 17:46 APTT 34.0 Sec. (24.2-36.6) 05/30/17 17:46 POC ABG pH 7.498 (7.35-7.45) H 05/30/17 17:37 POC ABG pCO2 45.3 (35-45) H 05/30/17 17:37 POC ABG pO2 248 (80-105) H 05/30/17 17:37 POC ABG HCO3 35.1 05/30/17 17:37 POC ABG Total CO2 36 05/30/17 17:37 POC ABG O2 Sat 100 05/30/17 17:37 POC ABG Base Excess 12 05/30/17 17:37 VBG pH 7.290 (7.320-7.420) L 05/30/17 17:46 FiO2 100 % 05/30/17 17:37 Sodium 165 mmol/L (137-145) H* 05/31/17 07:23 Potassium 4.4 mmol/L (3.6-5.0) 05/31/17 07:23 Chloride 124.4 mmol/L (98-107) H 05/31/17 07:23 Carbon Dioxide 30 mmol/L (22-30) 05/31/17 07:23 Anion Gap 15 mmol/L 05/31/17 07:23 BUN 94 mg/dL (7-17) H 05/31/17 07:23 Creatinine 1.4 mg/dL (0.7-1.2) H 05/31/17 07:23 Estimated GFR 44 ml/min 05/31/17 07:23 BUN/Creatinine Ratio 67 % 05/31/17 07:23 Glucose 350 mg/dL (65-100) H 05/31/17 07:23 POC Glucose 237 (70-105) H 05/31/17 12:03 Lactic Acid 2.10 mmol/L (0.7-2.0) H* 05/30/17 20:35 Calcium 7.9 mg/dL (8.4-10.2) L 05/31/17 07:23 Magnesium 3.50 mg/dL (1.7-2.3) H 05/30/17 17:46 Total Bilirubin 0.20 mg/dL (0.1-1.2) 05/30/17 17:46 AST 65 units/L (5-40) H 05/30/17 17:46 ALT 43 units/L (7-56) 05/30/17 17:46 Alkaline Phosphatase 114 units/L (35-129) 05/30/17 17:46 Total Creatine Kinase 1235 units/L (30-135) H 05/30/17 20:35 CK-MB (CK-2) 4.6 ng/mL (0.0-4.0) H 05/30/17 20:35 CK-MB (CK-2) Rel Index 0.3 (0-4) 05/30/17 20:35 Troponin T 0.181 ng/mL (0.00-0.029) H* 05/30/17 20:35 Total Protein 6.7 g/dL (6.3-8.2) 05/30/17 17:46 Albumin 3.0 g/dL (3.9-5) L 05/30/17 17:46 Albumin/Globulin Ratio 0.8 % 05/30/17 17:46 Triglycerides 241 mg/dL (2-149) H 05/30/17 17:46 Cholesterol 107 mg/dL (50-199) 05/30/17 17:46 LDL Cholesterol Direct 20 mg/dL (50-130) L 05/30/17 17:46 HDL Cholesterol 39 mg/dL (40-59) L 05/30/17 17:46 Cholesterol/HDL Ratio 2.74 % 05/30/17 17:46 Urine Color Madeline (Yellow) 05/30/17 18:17 Urine Turbidity Clear (Clear) 05/30/17 18:17 Urine pH 5.0 (5.0-7.0) 05/30/17 18:17 Ur Specific [place] 1.025 (1.003-1.030) 05/30/17 18:17 Urine Protein 100 mg/dl mg/dL (Negative) 05/30/17 18:17 Urine Glucose (UA) 50 mg/dL (Negative) 05/30/17 18:17 Urine Ketones Neg mg/dL (Negative) 05/30/17 18:17 Urine Blood Neg (Negative) 05/30/17 18:17 Urine Nitrite Neg (Negative) 05/30/17 18:17 Urine Bilirubin Neg (Negative) 05/30/17 18:17 Urine Urobilinogen 2.0 mg/dL (<2.0) 05/30/17 18:17 Ur Leukocyte Esterase Lg (Negative) 05/30/17 18:17 Urine WBC (Auto) 73.0 /HPF (0.0-6.0) H 05/30/17 18:17 Urine RBC (Auto) 12.0 /HPF (0.0-6.0) 05/30/17 18:17 U Epithel Cells (Auto) 4.0 /HPF (0-13.0) 05/30/17 18:17 Urine Bacteria (Auto) 4+ /HPF (Negative) 05/30/17 18:17 Urine WBC Clumps 2+ /HPF 05/30/17 18:17 Calcium Oxalate Crystal 1+ 05/30/17 18:17 Urine Mucus 3+ /HPF 05/30/17 18:17
--- NOTE | 2017-05-31 13:48 | Consultation ---
History of Present Illness - Reason for Consult Consult date: 05/31/17 sepsis Requesting physician: KADY SALINAS - History of Present Illness 81 years old female with history of chronic respiratory failure due to advanced COPD, on 2.5 L oxygen at home, still a smoker, also with coronary artery disease status post CABG, hypertension, dyslipidemia, diabetes, and recent anoxic brain injury, patient currently in a rehabilitation center, admitted on 05/30/2017 due to worsening altered mental status and SOB, hyperglycemia. [facility] she developed a sacral decubitus and toes ulcers. Of note, patient was recently discharged in on 04/30/2017 after being admitted for acute on chronic respiratory failure due to COPD exacerbation, found to have Escherichia coli UTI, experienced cardiac arrest 2 and DION. Patient was sent to hospice / rehabilitation. Patient is unable to provide a history due to baseline nonverbal status and she is bedbound. Recently received levaquin for about 10 days for presumed UTI. In the emergency room, initial temperature was 100.3, heart rate 73, blood pressure 115/70. Blood pressure then dropped to 82/45. Initial white count 28. Hemoglobin 10.5. Bands 21%. Creat 1.6. His urinalysis showed Large leukocyte esterase and 73 wbcs. Lactic acid 3.4. CXR neg. Bass was placed on admission. Noted diarrhea. Microbiology: Blood cultures: 05/30 ngtd Urine cultures: 05/30 pending Current Antimicrobials: Aztreonam Vanco Previous Antimicrobials: Past History Past Medical History: other (Htn, dm, anoxic brain, copd on home o2, uti, dnr) Past Surgical History: Other (PEG ) Social history: no significant social history Family history: diabetes Medications and Allergies Allergies Allergy/AdvReac Type Severity Reaction Status Date / Time Penicillins Allergy Unknown Verified 12/25/15 19:51 terbinafine HCl Allergy Unknown Verified 12/25/15 19:51 [From Lamisil] Home Medications Medication Instructions Recorded Confirmed Last Taken Type Clopidogrel Bisulfate [Plavix] 75 mg PO DAILY 12/25/15 05/30/17 05/30/17 History Insulin Glargine [Lantus VIAL] 20 unit SUB-Q QHS 12/25/15 05/30/17 05/30/17 History Metoprolol [Lopressor TAB] 50 mg PO DAILY 06/05/30/17 05/30/17 History Potassium Chloride [K-Dur] 20 meq PO QDAY 12/25/15 05/30/17 05/30/17 History Rosuvastatin (Nf) [Crestor] 20 mg PO QDAY 12/25/15 05/30/17 05/30/17 History ALBUTEROL Inhaler [ProAir HFA 2 puff IH QID PRN #1 inhalation 12/27/15 05/30/17 05/30/17 Rx Inhaler] Fluticasone/Salmeterol [Advair 1 puff IH BID #1 disk.w.dev 12/27/15 05/30/17 Rx Diskus 100-50 mcg] Furosemide [Lasix TAB] 20 mg PO PRN PRN 03/30/17 05/30/17 05/30/17 History Losartan [Cozaar] 50 mg PO QDAY 03/30/17 05/30/17 05/30/17 History Montelukast [Singulair] 10 mg PO QHS 03/30/17 05/30/17 05/30/17 History amLODIPine [Norvasc] 5 mg PO QDAY 03/30/17 05/30/17 05/30/17 History Active Meds: Active Medications Acetaminophen (Tylenol) 650 mg PO Q4H PRN PRN Reason: Pain MILD(1-3)/Fever >100.5/DIALLO Lipase/Protease/Amylase (Pancrejoy Dr 10,500 Unit) 1 each FEEDTUBE PRN PRN PRN Reason: For Clogged Feeding Tube Arformoterol Tartrate (Brovana Nebu) 15 mcg IH Q12HRT [facility] Last Admin: 05/31/17 08:37 Dose: 15 mcg Atorvastatin Calcium (Lipitor) 40 mg PO QHS [facility] Bisacodyl (Dulcolax) 10 mg MS QDAY PRN PRN Reason: Constipation unrelieved by MOM Budesonide (Pulmicort) 0.5 mg IH Q12HRT [facility] Last Admin: 05/31/17 08:39 Dose: 0.5 mg Clopidogrel Bisulfate (Plavix) 75 mg PO DAILY [facility] Dextrose (D50w (25gm) Vial) 25 gm IV PRN PRN PRN Reason: Hypoglycemia Enoxaparin Sodium (Lovenox) 40 mg SUB-Q QDAY [facility] Vancomycin HCl 1,250 mg/ (Sodium Chloride) 262.5 mls @ 166.667 mls/hr IV Q24H [facility] Sodium Chloride (Nacl 0.45% 1000 Ml) 1,000 mls @ 150 mls/hr IV DIRECT [facility] Stop: 06/03/17 00:59 Last Admin: 05/31/17 01:29 Dose: 150 mls/hr Aztreonam 1,000 mg/ Sodium (Chloride) 20 mls @ 20 mls/10 min IV Q8H [facility] Insulin Aspart (Novolog) 0 units SUB-Q Q6HR [facility] PRN Reason: Protocol Last Admin: 05/31/17 06:49 Dose: 8 units Insulin Detemir (Levemir) 20 units SUB-Q QHS [facility] Magnesium Hydroxide (Milk Of Magnesia) 30 ml PO Q4H PRN PRN Reason: Constipation Montelukast Sodium (Singulair) 10 mg PO QHS [facility] Morphine Sulfate (Morphine) 2 mg IV Q4H PRN PRN Reason: Pain, Moderate (4-6) Last Admin: 05/31/17 02:08 Dose: 2 mg Ondansetron HCl (Zofran) 4 mg IV Q8H PRN PRN Reason: N/V unrelieved by Reglan Simple Syrup (Simple Syrup) 15 ml FEEDTUBE PRN PRN PRN Reason: Hypoglycemia Simple Syrup (Simple Syrup) 30 ml FEEDTUBE PRN PRN PRN Reason: Hypoglycemia Sodium Bicarbonate (Sodium Bicarbonate) 325 mg FEEDTUBE PRN PRN PRN Reason: For Clogged Feeding Tube Review of Systems ROS unobtainable: due to mental status All systems: negative Physical Examination - Physical Exam Narrative exam: General appearance: Alert non verbal O2 mask in mild resp distress Eyes: anicteric sclerae, moist conjunctivae; no lid-lag; PERRLA HENT: Atraumatic; oropharynx limited Neck: Trachea midline; supple, no thyromegaly or lymphadenopathy Lungs: rohit rhonchi , with increased respiratory effort and intercostal retractions CV: RRR, no murmurs Abdomen: Soft, non-tende Extremities: +peripheral edema contracted Skin: sacral decubitus stage II + necrotic tissue no purulence , toes 2-5 ulcers non infected Psych: unable to eval Neuro: non verbal Lines: No CVL / PICC - Constitutional Vitals: Vital Signs Temp Pulse Resp BP Pulse Ox 97.9 F 96 H 20 82/34 98 05/31/17 08:00 05/31/17 09:08 05/31/17 09:08 05/31/17 08:00 05/31/17 09:10 Temperature -Last 24 Hours Temperature 97.9 F Temperature 99.5 F Temperature 100.5 F Temperature 100.3 F Temperature 100.3 F Results - Labs CBC & Chem 7: 05/31/17 07:23 05/31/17 07:23 Labs: Abnormal lab results 05/30/17 05/30/17 05/30/17 Range/Units 17:19 17:37 17:46 WBC 28.1 H (4.5-11.0) K/mm3 RBC 3.45 L (3.65-5.03) M/mm3 Hgb (10.1-14.3) gm/dl MCV 101 H (79-97) fl RDW 19.6 H (13.2-15.2) % Seg Neuts % (Manual) (40.0-70.0) % Lymphocytes % (Manual) (13.4-35.0) % Monocytes % (Manual) 8.0 H (0.0-7.3) % Nucleated RBC % 2.0 H (0.0-0.9) % Seg Neutrophils # Man 15.2 H (1.8-7.7) K/mm3 Monocytes # (Manual) 2.2 H (0.0-0.8) K/mm3 PT (12.2-14.9) Sec. INR (0.87-1.13) POC ABG pH 7.498 H (7.35-7.45) POC ABG pCO2 45.3 H (35-45) POC ABG pO2 248 H (80-105) VBG pH (7.320-7.420) Sodium (137-145) mmol/L Chloride (98-107) mmol/L BUN (7-17) mg/dL Creatinine (0.7-1.2) mg/dL Glucose (65-100) mg/dL POC Glucose 340 H (70-105) Lactic Acid (0.7-2.0) mmol/L Calcium (8.4-10.2) mg/dL Magnesium (1.7-2.3) mg/dL AST (5-40) units/L Total Creatine Kinase (30-135) units/L CK-MB (CK-2) (0.0-4.0) ng/mL Troponin T (0.00-0.029) ng/mL Albumin (3.9-5) g/dL Triglycerides (2-149) mg/dL LDL Cholesterol Direct (50-130) mg/dL HDL Cholesterol (40-59) mg/dL Urine WBC (Auto) (0.0-6.0) /HPF 05/30/17 05/30/17 05/30/17 Range/Units 17:46 17:46 17:46 WBC (4.5-11.0) K/mm3 RBC (3.65-5.03) M/mm3 Hgb (10.1-14.3) gm/dl MCV (79-97) fl RDW (13.2-15.2) % Seg Neuts % (Manual) (40.0-70.0) % Lymphocytes % (Manual) (13.4-35.0) % Monocytes % (Manual) (0.0-7.3) % Nucleated RBC % (0.0-0.9) % Seg Neutrophils # Man (1.8-7.7) K/mm3 Monocytes # (Manual) (0.0-0.8) K/mm3 PT (12.2-14.9) Sec. INR (0.87-1.13) POC ABG pH (7.35-7.45) POC ABG pCO2 (35-45) POC ABG pO2 (80-105) VBG pH 7.290 L (7.320-7.420) Sodium 168 H* (137-145) mmol/L Chloride 121.7 H (98-107) mmol/L BUN 88 H (7-17) mg/dL Creatinine 1.6 H (0.7-1.2) mg/dL Glucose 296 H (65-100) mg/dL POC Glucose (70-105) Lactic Acid 3.40 H* (0.7-2.0) mmol/L Calcium (8.4-10.2) mg/dL Magnesium (1.7-2.3) mg/dL AST 65 H (5-40) units/L Total Creatine Kinase 982 H (30-135) units/L CK-MB (CK-2) (0.0-4.0) ng/mL Troponin T 0.210 H* (0.00-0.029) ng/mL Albumin 3.0 L (3.9-5) g/dL Triglycerides 241 H (2-149) mg/dL LDL Cholesterol Direct 20 L (50-130) mg/dL HDL Cholesterol 39 L (40-59) mg/dL Urine WBC (Auto) (0.0-6.0) /HPF 05/30/17 05/30/17 05/30/17 Range/Units 17:46 17:46 18:17 WBC (4.5-11.0) K/mm3 RBC (3.65-5.03) M/mm3 Hgb (10.1-14.3) gm/dl MCV (79-97) fl RDW (13.2-15.2) % Seg Neuts % (Manual) (40.0-70.0) % Lymphocytes % (Manual) (13.4-35.0) % Monocytes % (Manual) (0.0-7.3) % Nucleated RBC % (0.0-0.9) % Seg Neutrophils # Man (1.8-7.7) K/mm3 Monocytes # (Manual) (0.0-0.8) K/mm3 PT 15.8 H (12.2-14.9) Sec. INR 1.20 H (0.87-1.13) POC ABG pH (7.35-7.45) POC ABG pCO2 (35-45) POC ABG pO2 (80-105) VBG pH (7.320-7.420) Sodium (137-145) mmol/L Chloride (98-107) mmol/L BUN (7-17) mg/dL Creatinine (0.7-1.2) mg/dL Glucose (65-100) mg/dL POC Glucose (70-105) Lactic Acid (0.7-2.0) mmol/L Calcium (8.4-10.2) mg/dL Magnesium 3.50 H (1.7-2.3) mg/dL AST (5-40) units/L Total Creatine Kinase (30-135) units/L CK-MB (CK-2) (0.0-4.0) ng/mL Troponin T (0.00-0.029) ng/mL Albumin (3.9-5) g/dL Triglycerides (2-149) mg/dL LDL Cholesterol Direct (50-130) mg/dL HDL Cholesterol (40-59) mg/dL Urine WBC (Auto) 73.0 H (0.0-6.0) /HPF 05/30/17 05/30/17 05/31/17 Range/Units 20:35 20:35 01:27 WBC (4.5-11.0) K/mm3 RBC (3.65-5.03) M/mm3 Hgb (10.1-14.3) gm/dl MCV (79-97) fl RDW (13.2-15.2) % Seg Neuts % (Manual) (40.0-70.0) % Lymphocytes % (Manual) (13.4-35.0) % Monocytes % (Manual) (0.0-7.3) % Nucleated RBC % (0.0-0.9) % Seg Neutrophils # Man (1.8-7.7) K/mm3 Monocytes # (Manual) (0.0-0.8) K/mm3 PT (12.2-14.9) Sec. INR (0.87-1.13) POC ABG pH (7.35-7.45) POC ABG pCO2 (35-45) POC ABG pO2 (80-105) VBG pH (7.320-7.420) Sodium (137-145) mmol/L Chloride (98-107) mmol/L BUN (7-17) mg/dL Creatinine (0.7-1.2) mg/dL Glucose (65-100) mg/dL POC Glucose 170 H (70-105) Lactic Acid 2.10 H* (0.7-2.0) mmol/L Calcium (8.4-10.2) mg/dL Magnesium (1.7-2.3) mg/dL AST (5-40) units/L Total Creatine Kinase 1235 H (30-135) units/L CK-MB (CK-2) 4.6 H (0.0-4.0) ng/mL Troponin T 0.181 H* (0.00-0.029) ng/mL Albumin (3.9-5) g/dL Triglycerides (2-149) mg/dL LDL Cholesterol Direct (50-130) mg/dL HDL Cholesterol (40-59) mg/dL Urine WBC (Auto) (0.0-6.0) /HPF 05/31/17 05/31/17 05/31/17 Range/Units 06:32 07:23 07:23 WBC 22.1 H (4.5-11.0) K/mm3 RBC 3.13 L (3.65-5.03) M/mm3 Hgb 9.7 L (10.1-14.3) gm/dl MCV 103 H (79-97) fl RDW 19.2 H (13.2-15.2) % Seg Neuts % (Manual) 80.5 H (40.0-70.0) % Lymphocytes % (Manual) 7.0 L (13.4-35.0) % Monocytes % (Manual) (0.0-7.3) % Nucleated RBC % 2.5 H (0.0-0.9) % Seg Neutrophils # Man 17.8 H (1.8-7.7) K/mm3 Monocytes # (Manual) (0.0-0.8) K/mm3 PT (12.2-14.9) Sec. INR (0.87-1.13) POC ABG pH (7.35-7.45) POC ABG pCO2 (35-45) POC ABG pO2 (80-105) VBG pH (7.320-7.420) Sodium 165 H* (137-145) mmol/L Chloride 124.4 H (98-107) mmol/L BUN 94 H (7-17) mg/dL Creatinine 1.4 H (0.7-1.2) mg/dL Glucose 350 H (65-100) mg/dL POC Glucose 308 H (70-105) Lactic Acid (0.7-2.0) mmol/L Calcium 7.9 L (8.4-10.2) mg/dL Magnesium (1.7-2.3) mg/dL AST (5-40) units/L Total Creatine Kinase (30-135) units/L CK-MB (CK-2) (0.0-4.0) ng/mL Troponin T (0.00-0.029) ng/mL Albumin (3.9-5) g/dL Triglycerides (2-149) mg/dL LDL Cholesterol Direct (50-130) mg/dL HDL Cholesterol (40-59) mg/dL Urine WBC (Auto) (0.0-6.0) /HPF 05/31/17 Range/Units 12:03 WBC (4.5-11.0) K/mm3 RBC (3.65-5.03) M/mm3 Hgb (10.1-14.3) gm/dl MCV (79-97) fl RDW (13.2-15.2) % Seg Neuts % (Manual) (40.0-70.0) % Lymphocytes % (Manual) (13.4-35.0) % Monocytes % (Manual) (0.0-7.3) % Nucleated RBC % (0.0-0.9) % Seg Neutrophils # Man (1.8-7.7) K/mm3 Monocytes # (Manual) (0.0-0.8) K/mm3 PT (12.2-14.9) Sec. INR (0.87-1.13) POC ABG pH (7.35-7.45) POC ABG pCO2 (35-45) POC ABG pO2 (80-105) VBG pH (7.320-7.420) Sodium (137-145) mmol/L Chloride (98-107) mmol/L BUN (7-17) mg/dL Creatinine (0.7-1.2) mg/dL Glucose (65-100) mg/dL POC Glucose 237 H (70-105) Lactic Acid (0.7-2.0) mmol/L Calcium (8.4-10.2) mg/dL Magnesium (1.7-2.3) mg/dL AST (5-40) units/L Total Creatine Kinase (30-135) units/L CK-MB (CK-2) (0.0-4.0) ng/mL Troponin T (0.00-0.029) ng/mL Albumin (3.9-5) g/dL Triglycerides (2-149) mg/dL LDL Cholesterol Direct (50-130) mg/dL HDL Cholesterol (40-59) mg/dL Urine WBC (Auto) (0.0-6.0) /HPF Assessment and Plan Assessment: 1) Sepsis: Present on admission, manifested by fever, hypotension, leukocytosis , bandemia, increased lactate. Etiology most likely UTI. 2) UTI: history of E coli UTI 3) Sacral stage II - non infected 4) Toes ulcers- non infected 5) Chronic resp failure / COPD 6) Anemia 7) Penicillin allergy 8) DM - uncontrolled 9) Diarrhea ? r/o C diff Plan: -follow-up blood cultures, urine culture -obtain C-reactive protein (CRP) -continue aztreonam and vanco for now -add flagyl -wound care consult -check C diff stool martha -contact isolation I will be off tomorrow, available on the phone and will be back rounding on the weekend Thank you Dr Salinas for your consultation, will follow up with you. Megan Caldwell MD Infectious Diseases Specialist [facility] ([facility] M [phone] O [phone]
[2017-05-31] MEDS: FLAGYL 500 MG/100 ML 500 MG/100 ML BAG IV SCH (16:18)
--- NOTE | 2017-05-31 17:01 | Consultation ---
History of Present Illness - Reason for Consult Consult date: 05/31/17 acute renal failure, hypernatremia Requesting physician: ROBYN HOFFMANN - History of Present Illness 81 year old woman who was previously in the hospital a few months ago. When she had COPD exacerbation requiring intubation. Sepsis due to UTI requiring presser is. She had multiple cardiac arrest. So for the [facility] brain injury. Patient was discharged to hospice. Patient has a peg tube. She is mostly bed-bound. Since being in the care home she developed a sacral decubitus and ulcers on her left toes. She was brought to the emergency room because of some alteration in mental status. She was also found to have a blood sugar of 500. Renal consult is requested because of hypernatremia and rising BUN and creatinine. Patient currently has indwelling Bass catheter in place. She is currently nonoliguric. Not able to get any history from patient at this time. Information obtained from patient's current chart Past History Past Medical History: other (Htn, dm, anoxic brain, copd on home o2, uti, dnr) Past Surgical History: Other (PEG ) Social history: no significant social history Family history: diabetes Medications and Allergies Allergies Allergy/AdvReac Type Severity Reaction Status Date / Time Penicillins Allergy Unknown Verified 12/25/15 19:51 terbinafine HCl Allergy Unknown Verified 12/25/15 19:51 [From Lamisil] Home Medications Medication Instructions Recorded Confirmed Last Taken Type Clopidogrel Bisulfate [Plavix] 75 mg PO DAILY 12/25/15 05/30/17 05/30/17 History Insulin Glargine [Lantus VIAL] 20 unit SUB-Q QHS 12/25/15 05/30/17 05/30/17 History Metoprolol [Lopressor TAB] 50 mg PO DAILY 12/25/15 05/30/17 05/30/17 History Potassium Chloride [K-Dur] 20 meq PO QDAY 12/25/15 05/30/17 05/30/17 History Rosuvastatin (Nf) [Crestor] 20 mg PO QDAY 12/25/15 05/30/17 05/30/17 History ALBUTEROL Inhaler [ProAir HFA 2 puff IH QID PRN #1 inhalation 12/27/15 05/30/17 05/30/17 Rx Inhaler] Fluticasone/Salmeterol [Advair 1 puff IH BID #1 disk.w.dev 12/27/15 05/30/17 Rx Diskus 100-50 mcg] Furosemide [Lasix TAB] 20 mg PO PRN PRN 03/30/17 05/30/17 05/30/17 History Losartan [Cozaar] 50 mg PO QDAY 03/30/17 05/30/17 05/30/17 History Montelukast [Singulair] 10 mg PO QHS 03/30/17 05/30/17 05/30/17 History amLODIPine [Norvasc] 5 mg PO QDAY 03/30/17 05/30/17 05/30/17 History Active Meds: Active Medications Acetaminophen (Tylenol) 650 mg PO Q4H PRN PRN Reason: Pain MILD(1-3)/Fever >100.5/DIALLO Lipase/Protease/Amylase (Pancreaze Dr 10,500 Unit) 1 each FEEDTUBE PRN PRN PRN Reason: For Clogged Feeding Tube Arformoterol Tartrate (Brovana Nebu) 15 mcg IH Q12HRT [facility] Last Admin: 05/31/17 08:37 Dose: 15 mcg Atorvastatin Calcium (Lipitor) 40 mg PO QHS [facility] Bisacodyl (Dulcolax) 10 mg ME QDAY PRN PRN Reason: Constipation unrelieved by MOM Budesonide (Pulmicort) 0.5 mg IH Q12HRT [facility] Last Admin: 05/31/17 08:39 Dose: 0.5 mg Clopidogrel Bisulfate (Plavix) 75 mg PO DAILY [facility] Dextrose (D50w (25gm) Vial) 25 gm IV PRN PRN PRN Reason: Hypoglycemia Enoxaparin Sodium (Lovenox) 40 mg SUB-Q QDAY [facility] Vancomycin HCl 1,250 mg/ (Sodium Chloride) 262.5 mls @ 166.667 mls/hr IV Q24H [facility] Sodium Chloride (Nacl 0.45% 1000 Ml) 1,000 mls @ 150 mls/hr IV DIRECT [facility] Stop: 06/03/17 00:59 Last Admin: 05/31/17 01:29 Dose: 150 mls/hr Aztreonam 1,000 mg/ Sodium (Chloride) 20 mls @ 20 mls/10 min IV Q8H [facility] Metronidazole (Flagyl 500 Mg/100 Ml) 500 mg in 100 mls @ 100 mls/hr IV Q8H [facility] Insulin Aspart (Novolog) 0 units SUB-Q Q6HR [facility] PRN Reason: Protocol Last Admin: 05/31/17 06:49 Dose: 8 units Insulin Detemir (Levemir) 20 units SUB-Q QHS [facility] Magnesium Hydroxide (Milk Of Magnesia) 30 ml PO Q4H PRN PRN Reason: Constipation Montelukast Sodium (Singulair) 10 mg PO QHS [facility] Morphine Sulfate (Morphine) 2 mg IV Q4H PRN PRN Reason: Pain, Moderate (4-6) Last Admin: 05/31/17 02:08 Dose: 2 mg Ondansetron HCl (Zofran) 4 mg IV Q8H PRN PRN Reason: N/V unrelieved by Reglan Simple Syrup (Simple Syrup) 15 ml FEEDTUBE PRN PRN PRN Reason: Hypoglycemia Simple Syrup (Simple Syrup) 30 ml FEEDTUBE PRN PRN PRN Reason: Hypoglycemia Sodium Bicarbonate (Sodium Bicarbonate) 325 mg FEEDTUBE PRN PRN PRN Reason: For Clogged Feeding Tube Review of Systems ROS unobtainable: due to mental status Exam - Vital Signs Vital signs: Vital Signs Pulse Resp BP Pulse Ox 73 11 L 115/73 95 05/30/17 13:57 05/30/17 13:57 05/30/17 13:57 05/30/17 13:57 - General Appearance General appearance: well-developed, well-nourished, appears stated age, other ( currently able to 50% Ventimask over her face) EENT: PERRL, mucous membranes dry Neck: Present: neck supple, trachea midline. Absent: JVD/HJR, Masses Respiratory: Clear to Ascultation Heart: regular, normal heart rate Gastrointestinal: Present: normal, normoactive bowel sounds Integumentary: no rash, other (no edema) Results - Lab Results 05/31/17 07:23 05/31/17 07:23 Most recent lab results Calcium 7.9 mg/dL (8.4-10.2) L 05/31/17 07:23 Magnesium 3.50 mg/dL (1.7-2.3) H 05/30/17 17:46 Assessment and Plan Impression * Acute renal failure. Most likely prerenal. Her baseline serum creatinine is approximately 0.9 * Hypernatremia. Most likely secondary to free water deficit * Encephalopathy * UTI * Sepsis Recommendations * Her urine appears to be concentrated with a specific gravity of 1.025. She has 2+ dipstick protein but no blood. Suspect prerenal acidemia * Shall check a fractional excretion of sodium * Renal ultrasound to assess kidney size and echogenicity * Agree with IV hydration * Administer free water * Avoid nephrotoxins * Monitor fluid status and electrolytes closely * Thank you very much for the consultation. Shall follow along with you
[2017-05-31] MEDS: AZACTAM 1,000 MG in NACL 0.9% 20 ML IV SCH (18:16)
[2017-05-31] MEDS: LOVENOX SUB-Q SCH (18:17)
[2017-05-31] MEDS ORDERED: NON-FORMULARY (Insulin Glargine 20 UNIT) SUB-Q SCH (22:00)
[2017-05-31] MEDS: SINGULAIR PO SCH (22:00)
[2017-05-31] MEDS: VANCOMYCIN 1,250 MG in NACL 0.9% 250ML 250 ML IV SCH (22:11)
[2017-06-01] MEDS: LEVEMIR SUB-Q SCH (00:12)
[2017-06-01] MEDS: FLAGYL 500 MG/100 ML 500 MG/100 ML BAG IV SCH ×3 (01:00→15:44)
[2017-06-01] MEDS: AZACTAM 1,000 MG in NACL 0.9% 20 ML IV SCH ×3 (02:04→17:05)
[2017-06-01] MEDS: NOVOLOG SUB-Q SCH ×5 (02:32→18:40)
[2017-06-01 05:13] LABS: Calcium 8.5 mg/dL (8.4-10.2); Chloride 125.6 mmol/L (98-107); Potassium 3.8 mmol/L (3.6-5.0)
--- NOTE | 2017-06-01 09:13 | Progress Note ---
Assessment and Plan Impression * Acute renal failure. Most likely prerenal. Her baseline serum creatinine is approximately 0.9 * Hypernatremia. Most likely secondary to free water deficit * Encephalopathy * UTI * Sepsis Recommendations * Her urine appears to be concentrated with a specific gravity of 1.025. She has 2+ dipstick protein but no blood. Suspect prerenal azotemia. Her renal function is improving * Awaiting results of fractional excretion of sodium * Renal ultrasound to assess kidney size and echogenicity * Continue IV hydration * Administer free water via PEG tube * Avoid nephrotoxins * Monitor fluid status and electrolytes closely * Subjective Date of service: 06/01/17 Interval history: Patient appears slightly more alert today. Ventimask in place Objective - Vital Signs Vital signs: Vital Signs - 12hr 05/31/17 06/01/17 06/01/17 22:00 04:21 07:58 Temperature 97.7 F 99.3 F Pulse Rate 82 96 H 90 Respiratory 20 18 22 Rate Blood Pressure 99/49 101/53 O2 Sat by Pulse 96 100 100 Oximetry - General Appearance General appearance: well-developed, well-nourished, appears stated age EENT: PERRL, mucous membranes moist Neck: no JVD, no thyromegaly, no carotid bruit, supple Respiratory: Present: Clear to Ascultation Cardiology: regular, normal heart rate, S1S2, no murmurs Gastrointestinal: normal, normoactive bowel sounds, other (PEG tube in place) Integumentary: no rash, other - Lab 05/31/17 07:23 06/01/17 03:39 Most recent lab results Calcium 8.5 mg/dL (8.4-10.2) 06/01/17 03:39 Magnesium 3.50 mg/dL (1.7-2.3) H 05/30/17 17:46
[2017-06-01] MEDS: BROVANA NEBU IH SCH ×2 (09:39→20:34)
[2017-06-01] MEDS: PULMICORT IH SCH ×2 (09:40→20:34)
[2017-06-01] MEDS: LOVENOX SUB-Q SCH (10:22)
[2017-06-01] MEDS: D5W 1,000 ML IV SCH (10:48)
[2017-06-01] MEDS: PLAVIX PO SCH (10:57)
[2017-06-01] MEDS: MORPHINE IV PRN (10:58)
[2017-06-01] MEDS ORDERED: KIONEX PO ONE ×2 (11:00→16:00)
--- NOTE | 2017-06-01 14:31 | Ultrasound Report ---
Renal ultrasound. History: Acute renal insufficiency. The right kidney measures 9.4 x 5.1 x 6.0 cm. The left kidney measures 10.0 x 5.6 x 6.6 cm. There are 2 renal cysts on the left, largest of which in the upper pole measures 3.4 x 4.8 x 3.9 cm. In the midpole in the lateral cortex the cyst measures 2.8 x 3.07 m. A 2.7 x 3.2 cm cyst is seen in the lateral cortex of the midpole the right kidney. Cortical thickness is normal. Images of the urinary bladder revealfindings. Impression: Bilateral renal cysts.
--- NOTE | 2017-06-01 15:52 | Progress Note ---
Assessment and Plan Assessment and plan: Patient is a 81-year-old woman with hx of 2 cardiac arrest in 2016. It appears she was discharged to Hospice on 04/19/17 (Dr. Feng responsible for discharge summary) she return yesterday from [facility] and [place] with AMS. A few months ago during the above mentioned When she had COPD exacerbation requiring intubation. She had multiple cardiac arrest and resultant anoxic brain injury. Patient was discharged to hospice. She improved on [facility] from hospice and sent to intermediate. Patient has a peg tube. She is mostly bed- bound. She's on the grand Rehabilitation. As for her daughter she's been able to get on the exercise bike for 15 seconds. She has not walked. She is able to communicate with only a few words. Since being in the intermediate she developed a secret decubitus. And ulcers on her left toes. She's brought in because she was more confused more altered and had very elevated glucose. Glucose as high as 500. THe NH has been rx her with levaquin for about 10 days for presumed UTI. Upon arrival in the ER she was hypotensive requiring multiple normal saline for blood pressure improve. Per nursing documentation Staff member of [facility] was called to inquire about baseline mental status. Patient is alert without verbal responses. According to the physical therapist, the patient is lethargic, non-verbal. Can not use her hands at all. Total assist for all aspects of care. Would respond to pain stimuli. Has history of having chewed on her tongue to the point of injury. Patient appears to be at baseline. Hypotension, hypovolemia, which responded to normal saline, again dropping, will give more fluids Severe hypernatremia: consult nephrology and input noted. PEG was malfunctioning but now functioning, first free water fluids given this afternoon. will recheck sodium at 6pm and then in am. Continue D5W in the meantime. Sepsis/UTI: Iv abx, follow cultures DION/Vasomotor nephropathy-likely due to dehydration and ATN-continue IVF COPD with chronic hypoxic respiratory failure, oxygen dependent, stable, not in exacerbation Multiple decubiti pressure ulcers: see wound care pictures, Sacral and Left 2nd to 5th toes ulcers decub, POA. 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 Recheck head CT DNR poor prognosis Patient seen with nursing staff. Plan discussed with Computer Training Specialist. The high probability of a clinically significant, sudden or life threatening deterioration of the [NEUROLOGY, NEPHROLOGY] system(s) required my full and direct attention, intervention and personal management. The aggregate critical care time was [35] minutes. This time is in addition to time spent performing reported procedures but includes the following: [X] Data Review and interpretation [X] Patient assessment and monitoring of vital signs [X] Documentation [X] Medication orders and management History Interval history: Patient seen and examined, remains no responsive to verbal and noxious stimuli, continues to hum sounds, and with non purposeful movements Hospitalist Physical - Physical exam Narrative exam: GEN: Ill-appearing, chronic debilitated, awake but confused HEENT: NCAT, EOMI, PERRL, OP Clear NECK: supple, no adenopathy, no thyromegaly, no JVD CVS/HEART: RRR, NORMAL S1S2, NO JVD, pulses present bilaterally CHEST/LUNGS: Symmetrical chest expansion, good air entry bilaterally GI/Abdomen: soft, NTND, good bowel sounds, no guarding or rebound /Bladder: no suprapubic tenderness, no CVA or paraspinal tenderness EXT/Skin: no c/c/e, no obvious rash MSK: FROM x 4 Neuro: CN 2-12 grossly intact, no new focal deficits Psych: Anxious - Constitutional Vitals: Temp Pulse Resp BP Pulse Ox 98.0 F 90 20 111/46 100 06/01/17 12:20 06/01/17 07:58 06/01/17 12:20 06/01/17 12:20 06/01/17 09:35 General appearance: Present: no acute distress, well-nourished Results - Labs CBC & Chem 7: 05/31/17 07:23 06/01/17 13:00 Labs: Laboratory Last Values WBC 22.1 K/mm3 (4.5-11.0) H 05/31/17 07:23 RBC 3.13 M/mm3 (3.65-5.03) L 05/31/17 07:23 Hgb 9.7 gm/dl (10.1-14.3) L 05/31/17 07:23 Hct 32.4 % (30.3-42.9) 05/31/17 07:23 MCV 103 fl (79-97) H 05/31/17 07:23 MCH 31 pg (28-32) 05/31/17 07:23 MCHC 30 % (30-34) 05/31/17 07:23 RDW 19.2 % (13.2-15.2) H 05/31/17 07:23 Plt Count 273 K/mm3 (140-440) 05/31/17 07:23 Add Manual Diff Complete 05/31/17 07:23 Total Counted 200 05/31/17 07:23 Seg Neuts % (Manual) 80.5 % (40.0-70.0) H 05/31/17 07:23 Band Neutrophils % 9.0 % 05/31/17 07:23 Lymphocytes % (Manual) 7.0 % (13.4-35.0) L 05/31/17 07:23 Reactive Lymphs % (Man) 0 % 05/31/17 07:23 Monocytes % (Manual) 3.5 % (0.0-7.3) 05/31/17 07:23 Eosinophils % (Manual) 0 % (0.0-4.3) 05/31/17 07:23 Basophils % (Manual) 0 % (0.0-1.8) 05/31/17 07:23 Metamyelocytes % 0 % 05/31/17 07:23 Myelocytes % 0 % 05/31/17 07:23 Promyelocytes % 0 % 05/31/17 07:23 Blast Cells % 0 % 05/31/17 07:23 Nucleated RBC % 2.5 % (0.0-0.9) H 05/31/17 07:23 Seg Neutrophils # Man 17.8 K/mm3 (1.8-7.7) H 05/31/17 07:23 Band Neutrophils # 2.0 K/mm3 05/31/17 07:23 Lymphocytes # (Manual) 1.5 K/mm3 (1.2-5.4) 05/31/17 07:23 Abs React Lymphs (Man) 0.0 K/mm3 05/31/17 07:23 Monocytes # (Manual) 0.8 K/mm3 (0.0-0.8) 05/31/17 07:23 Eosinophils # (Manual) 0.0 K/mm3 (0.0-0.4) 05/31/17 07:23 Basophils # (Manual) 0.0 K/mm3 (0.0-0.1) 05/31/17 07:23 Metamyelocytes # 0.0 K/mm3 05/31/17 07:23 Myelocytes # 0.0 K/mm3 05/31/17 07:23 Promyelocytes # 0.0 K/mm3 05/31/17 07:23 Blast Cells # 0.0 K/mm3 05/31/17 07:23 WBC Morphology Not Reportable 05/31/17 07:23 Hypersegmented Neuts Not Reportable 05/31/17 07:23 Hyposegmented Neuts Not Reportable 05/31/17 07:23 Hypogranular Neuts Not Reportable 05/31/17 07:23 Smudge Cells Not Reportable 05/31/17 07:23 Toxic Granulation Not Reportable 05/31/17 07:23 Toxic Vacuolation Not Reportable 05/31/17 07:23 Dohle Bodies Not Reportable 05/31/17 07:23 Pelger-Huet Anomaly Not Reportable 05/31/17 07:23 Carlos Rods Not Reportable 05/31/17 07:23 Platelet Estimate Appears normal 05/31/17 07:23 Clumped Platelets Not Reportable 05/31/17 07:23 Plt Clumps, EDTA Not Reportable 05/31/17 07:23 Large Platelets Not Reportable 05/31/17 07:23 Giant Platelets Not Reportable 05/31/17 07:23 Platelet Satelliting Not Reportable 05/31/17 07:23 Plt Morphology Comment Not Reportable 05/31/17 07:23 RBC Morphology Not Reportable 05/31/17 07:23 Dimorphic RBCs Not Reportable 05/31/17 07:23 Polychromasia Few 05/31/17 07:23 Hypochromasia 1+ 05/31/17 07:23 Poikilocytosis Few 05/31/17 07:23 Anisocytosis 1+ 05/31/17 07:23 Microcytosis Not Reportable 05/31/17 07:23 Macrocytosis Not Reportable 05/31/17 07:23 Spherocytes Not Reportable 05/31/17 07:23 Pappenheimer Bodies Not Reportable 05/31/17 07:23 Sickle Cells Not Reportable 05/31/17 07:23 Target Cells Not Reportable 05/31/17 07:23 Tear Drop Cells Not Reportable 05/31/17 07:23 Ovalocytes 1+ 05/31/17 07:23 Helmet Cells Not Reportable 05/31/17 07:23 [place] Bodies Not Reportable 05/31/17 07:23 [place] Rings Not Reportable 05/31/17 07:23 [place] Cells Not Reportable 05/31/17 07:23 Bite Cells Not Reportable 05/31/17 07:23 Crenated Cell Not Reportable 05/31/17 07:23 Elliptocytes Not Reportable 05/31/17 07:23 Acanthocytes (Spur) Rare 05/31/17 07:23 Rouleaux Not Reportable 05/31/17 07:23 Hemoglobin C Crystals Not Reportable 05/31/17 07:23 Schistocytes Few 05/31/17 07:23 Malaria parasites Not Reportable 05/31/17 07:23 Rhys Bodies Not Reportable 05/31/17 07:23 Hem Pathologist Commnt No 05/31/17 07:23 PT 15.8 Sec. (12.2-14.9) H 05/30/17 17:46 INR 1.20 (0.87-1.13) H 05/30/17 17:46 APTT 34.0 Sec. (24.2-36.6) 05/30/17 17:46 POC ABG pH 7.498 (7.35-7.45) H 05/30/17 17:37 POC ABG pCO2 45.3 (35-45) H 05/30/17 17:37 POC ABG pO2 248 (80-105) H 05/30/17 17:37 POC ABG HCO3 35.1 05/30/17 17:37 POC ABG Total CO2 36 05/30/17 17:37 POC ABG O2 Sat 100 05/30/17 17:37 POC ABG Base Excess 12 05/30/17 17:37 VBG pH 7.290 (7.320-7.420) L 05/30/17 17:46 FiO2 100 % 05/30/17 17:37 Sodium 168 mmol/L (137-145) H* 06/01/17 13:00 Potassium 3.8 mmol/L (3.6-5.0) 06/01/17 03:39 Chloride 125.6 mmol/L (98-107) H 06/01/17 03:39 Carbon Dioxide 28 mmol/L (22-30) 06/01/17 03:39 Anion Gap 15 mmol/L 06/01/17 03:39 BUN 93 mg/dL (7-17) H 06/01/17 03:39 Creatinine 1.1 mg/dL (0.7-1.2) 06/01/17 03:39 Estimated GFR 58 ml/min 06/01/17 03:39 BUN/Creatinine Ratio 85 % 06/01/17 03:39 Glucose 324 mg/dL (65-100) H 06/01/17 03:39 POC Glucose 272 (70-105) H 06/01/17 08:22 Lactic Acid 2.10 mmol/L (0.7-2.0) H* 05/30/17 20:35 Calcium 8.5 mg/dL (8.4-10.2) 06/01/17 03:39 Magnesium 3.50 mg/dL (1.7-2.3) H 05/30/17 17:46 Total Bilirubin 0.20 mg/dL (0.1-1.2) 05/30/17 17:46 AST 65 units/L (5-40) H 05/30/17 17:46 ALT 43 units/L (7-56) 05/30/17 17:46 Alkaline Phosphatase 114 units/L (35-129) 05/30/17 17:46 Total Creatine Kinase 1235 units/L (30-135) H 05/30/17 20:35 CK-MB (CK-2) 4.6 ng/mL (0.0-4.0) H 05/30/17 20:35 CK-MB (CK-2) Rel Index 0.3 (0-4) 05/30/17 20:35 Troponin T 0.181 ng/mL (0.00-0.029) H* 05/30/17 20:35 C-Reactive Protein 26.50 mg/dL (0.00-1.30) H 05/31/17 07:23 Total Protein 6.7 g/dL (6.3-8.2) 05/30/17 17:46 Albumin 3.0 g/dL (3.9-5) L 05/30/17 17:46 Albumin/Globulin Ratio 0.8 % 05/30/17 17:46 Triglycerides 241 mg/dL (2-149) H 05/30/17 17:46 Cholesterol 107 mg/dL (50-199) 05/30/17 17:46 LDL Cholesterol Direct 20 mg/dL (50-130) L 05/30/17 17:46 HDL Cholesterol 39 mg/dL (40-59) L 05/30/17 17:46 Cholesterol/HDL Ratio 2.74 % 05/30/17 17:46 Urine Color Madeline (Yellow) 05/30/17 18:17 Urine Turbidity Clear (Clear) 05/30/17 18:17 Urine pH 5.0 (5.0-7.0) 05/30/17 18:17 Ur Specific [place] 1.025 (1.003-1.030) 05/30/17 18:17 Urine Protein 100 mg/dl mg/dL (Negative) 05/30/17 18:17 Urine Glucose (UA) 50 mg/dL (Negative) 05/30/17 18:17 Urine Ketones Neg mg/dL (Negative) 05/30/17 18:17 Urine Blood Neg (Negative) 05/30/17 18:17 Urine Nitrite Neg (Negative) 05/30/17 18:17 Urine Bilirubin Neg (Negative) 05/30/17 18:17 Urine Urobilinogen 2.0 mg/dL (<2.0) 05/30/17 18:17 Ur Leukocyte Esterase Lg (Negative) 05/30/17 18:17 Urine WBC (Auto) 73.0 /HPF (0.0-6.0) H 05/30/17 18:17 Urine RBC (Auto) 12.0 /HPF (0.0-6.0) 05/30/17 18:17 U Epithel Cells (Auto) 4.0 /HPF (0-13.0) 05/30/17 18:17 Urine Bacteria (Auto) 4+ /HPF (Negative) 05/30/17 18:17 Urine WBC Clumps 2+ /HPF 05/30/17 18:17 Calcium Oxalate Crystal 1+ 05/30/17 18:17 Urine Mucus 3+ /HPF 05/30/17 18:17
[2017-06-01] MEDS ORDERED: NACL 0.9% 250ML 250 ML IV ONE (16:52)
--- NOTE | 2017-06-01 18:09 | Cat Scan Report ---
FINAL REPORT EXAM: CT HEAD/BRAIN WO CON HISTORY: AMS TECHNIQUE: CT examination of the head without IV contrast PRIORS: Brain MRI 04/14/2017 FINDINGS: Patient motion artifact degrades image quality and limits the examination. Stable chronic lacunar infarct in left basal ganglia. No acute air-fluid level visualized in the included air-filled sinuses. Bone windows demonstrate no acute fracture. There is ventricular and sulcal prominence compatible with global cerebrocortical atrophy. Low attenuation regions in the cerebral white matter, while nonspecific, are present and usually attributed to chronic ischemic gliosis. It can occur secondary to the normal aging process, hypertension, or arterial sclerotic vascular disease. The differential includes demyelination in the appropriate clinical setting. The brain contains no mass, mass effect, hemorrhage, or acute infarct. There is no extra-axial intracranial bleed or brain bleed. There is no midline shift. IMPRESSION: No acute CVA, intracranial bleed, or brain mass Stable chronic lacunar infarct in left basal ganglia
[2017-06-01] MEDS: VANCOMYCIN 1,250 MG in NACL 0.9% 250ML 250 ML IV SCH (22:20)
[2017-06-01] MEDS: SINGULAIR PO SCH (23:20)
[2017-06-02] MEDS: LEVEMIR SUB-Q SCH (00:29)
[2017-06-02] MEDS: NOVOLOG SUB-Q SCH ×4 (00:30→15:26)
[2017-06-02] MEDS: FLAGYL 500 MG/100 ML 500 MG/100 ML BAG IV SCH ×2 (00:31→15:27)
[2017-06-02] MEDS: AZACTAM 1,000 MG in NACL 0.9% 20 ML IV SCH ×2 (02:50→10:03)
[2017-06-02] MEDS: D5W 1,000 ML IV SCH (05:07)
[2017-06-02 06:15] LABS: Fractional Sodium Excretion 0.2
[2017-06-02 08:09] LABS: Hemoglobin 8.2 gm/dl (10.1-14.3); Mean Corpuscular HGB Conc 30 % (30-34); Mean Corpuscular Hemoglobin 31 pg (28-32); Mean Corpuscular Volume 102 fl (79-97); Platelet Count 261 K/mm3 (140-440); Red Blood Count 2.65 M/mm3 (3.65-5.03); Red Cell Distribution Width 19.3 % (13.2-15.2)
[2017-06-02 08:12] LABS: Anion Gap 16 mmol/L; BUN/Creatinine Ratio 90; Blood Urea Nitrogen 90 mg/dL (7-17); Calcium 7.9 mg/dL (8.4-10.2); Carbon Dioxide 26 mmol/L (22-30); Chloride 125.1 mmol/L (98-107); Glucose 346 mg/dL (65-100)
[2017-06-02 08:13] LABS: White Blood Count 32.9 K/mm3 (4.5-11.0)
[2017-06-02 08:23] LABS: Chloride 124.3 mmol/L (98-107)
[2017-06-02 08:28] LABS: Potassium 2.9 mmol/L (3.6-5.0); Sodium 165 mmol/L (137-145)
--- NOTE | 2017-06-02 09:33 | Progress Note ---
Assessment and Plan Assessment and plan: Patient is a 81-year-old woman with hx of 2 cardiac arrest in 2016. It appears she was discharged to Hospice on 04/19/17 (Dr. Feng responsible for discharge summary) she return yesterday from [facility] and [place] with AMS. A few months ago during the above mentioned When she had COPD exacerbation requiring intubation. She had multiple cardiac arrest and resultant anoxic brain injury. Patient was discharged to hospice. She improved on [facility] from hospice and sent to intermediate. Patient has a peg tube. She is mostly bed- bound. She's on the grand Rehabilitation. As for her daughter she's been able to get on the exercise bike for 15 seconds. She has not walked. She is able to communicate with only a few words. Since being in the intermediate she developed a secret decubitus. And ulcers on her left toes. She's brought in because she was more confused more altered and had very elevated glucose. Glucose as high as 500. THe NH has been rx her with levaquin for about 10 days for presumed UTI. Upon arrival in the ER she was hypotensive requiring multiple normal saline for blood pressure improve. Per nursing documentation Staff member of [facility] was called to inquire about baseline mental status. Patient is alert without verbal responses. According to the physical therapist, the patient is lethargic, non-verbal. Can not use her hands at all. Total assist for all aspects of care. Would respond to pain stimuli. Has history of having chewed on her tongue to the point of injury. Patient appears to be at baseline. Hypotension, hypovolemia, Possible septic shock. Give IVF Septic Shock: Give Bolus fluids, worsening leukocytosis, check lactate and CRP Severe hypernatremia: consult nephrology and input noted. PEG was malfunctioning but now functioning, still elvated, stop D5W. continue free water fluids. Sepsis/UTI: Iv abx, follow cultures Hypokalemia: replace DION/Vasomotor nephropathy-likely due to dehydration and ATN-continue IVF COPD with chronic hypoxic respiratory failure, oxygen dependent, stable, not in exacerbation Multiple decubiti pressure ulcers: see wound care pictures, Sacral and Left 2nd to 5th toes ulcers decub, POA. Continue wound management DM type 2, uncontrolled: continue long acting insuli, was worse with D5W, NOW STOPPED Anoxic Brain injury: Appear to be at baseline per SNF nursing staff, although contradicts the Daughters voicing that patient was doing exercise bike, on rediscussion with the daughter she acknowledges that but stated that the patient was improving at some point then declined. 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 Recheck head CT DNR poor prognosis Patient seen with nursing staff. Plan discussed with Automation Controls Expert call family to discuss hospice-SPOKE TO DAUGHTER AND THEY ARE DISCUSSING WITH THE REST . The high probability of a clinically significant, sudden or life threatening deterioration of the [NEUROLOGY, NEPHROLOGY] system(s) required my full and direct attention, intervention and personal management. The aggregate critical care time was [35] minutes. This time is in addition to time spent performing reported procedures but includes the following: [X] Data Review and interpretation [X] Patient assessment and monitoring of vital signs [X] Documentation [X] Medication orders and management History Interval history: Patient seen and examined, remains no responsive to verbal and noxious stimuli, on venti mask. nurse reports patient was on it two days ago but was not there today Hospitalist Physical - Physical exam Narrative exam: GEN: Ill-appearing, chronic debilitated, awake but confused HEENT: NCAT, EOMI, PERRL, OP Clear NECK: supple, no adenopathy, no thyromegaly, no JVD CVS/HEART: RRR, NORMAL S1S2, NO JVD, pulses present bilaterally CHEST/LUNGS: Symmetrical chest expansion, good air entry bilaterally GI/Abdomen: soft, NTND, good bowel sounds, no guarding or rebound /Bladder: no suprapubic tenderness, no CVA or paraspinal tenderness EXT/Skin: no c/c/e, no obvious rash MSK: FROM x 4 Neuro: CN 2-12 grossly intact, no new focal deficits Psych: unable to assess - Constitutional Vitals: Temp Pulse Resp BP Pulse Ox 100.3 F H 91 H 24 96/46 100 06/02/17 07:50 06/02/17 07:50 06/02/17 07:50 06/02/17 07:50 06/02/17 07:50 General appearance: Present: no acute distress, well-nourished Results - Labs CBC & Chem 7: 06/02/17 07:28 06/02/17 07:39 Labs: Laboratory Last Values WBC 32.9 K/mm3 (4.5-11.0) H 06/02/17 07:28 RBC 2.65 M/mm3 (3.65-5.03) L 06/02/17 07:28 Hgb 8.2 gm/dl (10.1-14.3) L 06/02/17 07:28 Hct 27.0 % (30.3-42.9) L 06/02/17 07:28 MCV 102 fl (79-97) H 06/02/17 07:28 MCH 31 pg (28-32) 06/02/17 07:28 MCHC 30 % (30-34) 06/02/17 07:28 RDW 19.3 % (13.2-15.2) H 06/02/17 07:28 Plt Count 261 K/mm3 (140-440) 06/02/17 07:28 Add Manual Diff Complete 05/31/17 07:23 Total Counted 200 05/31/17 07:23 Seg Neuts % (Manual) 80.5 % (40.0-70.0) H 05/31/17 07:23 Band Neutrophils % 9.0 % 05/31/17 07:23 Lymphocytes % (Manual) 7.0 % (13.4-35.0) L 05/31/17 07:23 Reactive Lymphs % (Man) 0 % 05/31/17 07:23 Monocytes % (Manual) 3.5 % (0.0-7.3) 05/31/17 07:23 Eosinophils % (Manual) 0 % (0.0-4.3) 05/31/17 07:23 Basophils % (Manual) 0 % (0.0-1.8) 05/31/17 07:23 Metamyelocytes % 0 % 05/31/17 07:23 Myelocytes % 0 % 05/31/17 07:23 Promyelocytes % 0 % 05/31/17 07:23 Blast Cells % 0 % 05/31/17 07:23 Nucleated RBC % 2.5 % (0.0-0.9) H 05/31/17 07:23 Seg Neutrophils # Man 17.8 K/mm3 (1.8-7.7) H 05/31/17 07:23 Band Neutrophils # 2.0 K/mm3 05/31/17 07:23 Lymphocytes # (Manual) 1.5 K/mm3 (1.2-5.4) 05/31/17 07:23 Abs React Lymphs (Man) 0.0 K/mm3 05/31/17 07:23 Monocytes # (Manual) 0.8 K/mm3 (0.0-0.8) 05/31/17 07:23 Eosinophils # (Manual) 0.0 K/mm3 (0.0-0.4) 05/31/17 07:23 Basophils # (Manual) 0.0 K/mm3 (0.0-0.1) 05/31/17 07:23 Metamyelocytes # 0.0 K/mm3 05/31/17 07:23 Myelocytes # 0.0 K/mm3 05/31/17 07:23 Promyelocytes # 0.0 K/mm3 05/31/17 07:23 Blast Cells # 0.0 K/mm3 05/31/17 07:23 WBC Morphology Not Reportable 05/31/17 07:23 Hypersegmented Neuts Not Reportable 05/31/17 07:23 Hyposegmented Neuts Not Reportable 05/31/17 07:23 Hypogranular Neuts Not Reportable 05/31/17 07:23 Smudge Cells Not Reportable 05/31/17 07:23 Toxic Granulation Not Reportable 05/31/17 07:23 Toxic Vacuolation Not Reportable 05/31/17 07:23 Dohle Bodies Not Reportable 05/31/17 07:23 Pelger-Huet Anomaly Not Reportable 05/31/17 07:23 Carlos Rods Not Reportable 05/31/17 07:23 Platelet Estimate Appears normal 05/31/17 07:23 Clumped Platelets Not Reportable 05/31/17 07:23 Plt Clumps, EDTA Not Reportable 05/31/17 07:23 Large Platelets Not Reportable 05/31/17 07:23 Giant Platelets Not Reportable 05/31/17 07:23 Platelet Satelliting Not Reportable 05/31/17 07:23 Plt Morphology Comment Not Reportable 05/31/17 07:23 RBC Morphology Not Reportable 05/31/17 07:23 Dimorphic RBCs Not Reportable 05/31/17 07:23 Polychromasia Few 05/31/17 07:23 Hypochromasia 1+ 05/31/17 07:23 Poikilocytosis Few 05/31/17 07:23 Anisocytosis 1+ 05/31/17 07:23 Microcytosis Not Reportable 05/31/17 07:23 Macrocytosis Not Reportable 05/31/17 07:23 Spherocytes Not Reportable 05/31/17 07:23 Pappenheimer Bodies Not Reportable 05/31/17 07:23 Sickle Cells Not Reportable 05/31/17 07:23 Target Cells Not Reportable 05/31/17 07:23 Tear Drop Cells Not Reportable 05/31/17 07:23 Ovalocytes 1+ 05/31/17 07:23 Helmet Cells Not Reportable 05/31/17 07:23 [place] Bodies Not Reportable 05/31/17 07:23 [place] Rings Not Reportable 05/31/17 07:23 [place] Cells Not Reportable 05/31/17 07:23 Bite Cells Not Reportable 05/31/17 07:23 Crenated Cell Not Reportable 05/31/17 07:23 Elliptocytes Not Reportable 05/31/17 07:23 Acanthocytes (Spur) Rare 05/31/17 07:23 Rouleaux Not Reportable 05/31/17 07:23 Hemoglobin C Crystals Not Reportable 05/31/17 07:23 Schistocytes Few 05/31/17 07:23 Malaria parasites Not Reportable 05/31/17 07:23 Rhys Bodies Not Reportable 05/31/17 07:23 Hem Pathologist Commnt No 05/31/17 07:23 PT 15.8 Sec. (12.2-14.9) H 05/30/17 17:46 INR 1.20 (0.87-1.13) H 05/30/17 17:46 APTT 34.0 Sec. (24.2-36.6) 05/30/17 17:46 POC ABG pH 7.498 (7.35-7.45) H 05/30/17 17:37 POC ABG pCO2 45.3 (35-45) H 05/30/17 17:37 POC ABG pO2 248 (80-105) H 05/30/17 17:37 POC ABG HCO3 35.1 05/30/17 17:37 POC ABG Total CO2 36 05/30/17 17:37 POC ABG O2 Sat 100 05/30/17 17:37 POC ABG Base Excess 12 05/30/17 17:37 VBG pH 7.290 (7.320-7.420) L 05/30/17 17:46 FiO2 100 % 05/30/17 17:37 Sodium 166 mmol/L (137-145) H* 06/02/17 07:28 Potassium 3.0 mmol/L (3.6-5.0) L 06/02/17 07:28 Chloride 124.3 mmol/L (98-107) H 06/02/17 07:28 Carbon Dioxide 23 mmol/L (22-30) 06/02/17 07:28 Anion Gap 19 mmol/L 06/02/17 07:28 BUN 90 mg/dL (7-17) H 06/02/17 07:28 Creatinine 1.1 mg/dL (0.7-1.2) 06/02/17 07:28 Estimated GFR 58 ml/min 06/02/17 07:28 BUN/Creatinine Ratio 82 % 06/02/17 07:28 Glucose 344 mg/dL (65-100) H 06/02/17 07:28 POC Glucose 380 (70-105) H 06/02/17 06:46 Lactic Acid 2.10 mmol/L (0.7-2.0) H* 05/30/17 20:35 Calcium 8.0 mg/dL (8.4-10.2) L 06/02/17 07:28 Magnesium 3.50 mg/dL (1.7-2.3) H 05/30/17 17:46 Total Bilirubin 0.20 mg/dL (0.1-1.2) 05/30/17 17:46 AST 65 units/L (5-40) H 05/30/17 17:46 ALT 43 units/L (7-56) 05/30/17 17:46 Alkaline Phosphatase 114 units/L (35-129) 05/30/17 17:46 Total Creatine Kinase 1235 units/L (30-135) H 05/30/17 20:35 CK-MB (CK-2) 4.6 ng/mL (0.0-4.0) H 05/30/17 20:35 CK-MB (CK-2) Rel Index 0.3 (0-4) 05/30/17 20:35 Troponin T 0.181 ng/mL (0.00-0.029) H* 05/30/17 20:35 C-Reactive Protein 26.50 mg/dL (0.00-1.30) H 05/31/17 07:23 Total Protein 6.7 g/dL (6.3-8.2) 05/30/17 17:46 Albumin 3.0 g/dL (3.9-5) L 05/30/17 17:46 Albumin/Globulin Ratio 0.8 % 05/30/17 17:46 Triglycerides 241 mg/dL (2-149) H 05/30/17 17:46 Cholesterol 107 mg/dL (50-199) 05/30/17 17:46 LDL Cholesterol Direct 20 mg/dL (50-130) L 05/30/17 17:46 HDL Cholesterol 39 mg/dL (40-59) L 05/30/17 17:46 Cholesterol/HDL Ratio 2.74 % 05/30/17 17:46 Urine Color Madeline (Yellow) 05/30/17 18:17 Urine Turbidity Clear (Clear) 05/30/17 18:17 Urine pH 5.0 (5.0-7.0) 05/30/17 18:17 Ur Specific [place] 1.025 (1.003-1.030) 05/30/17 18:17 Urine Protein 100 mg/dl mg/dL (Negative) 05/30/17 18:17 Urine Glucose (UA) 50 mg/dL (Negative) 05/30/17 18:17 Urine Ketones Neg mg/dL (Negative) 05/30/17 18:17 Urine Blood Neg (Negative) 05/30/17 18:17 Urine Nitrite Neg (Negative) 05/30/17 18:17 Urine Bilirubin Neg (Negative) 05/30/17 18:17 Urine Urobilinogen 2.0 mg/dL (<2.0) 05/30/17 18:17 Ur Leukocyte Esterase Lg (Negative) 05/30/17 18:17 Urine WBC (Auto) 73.0 /HPF (0.0-6.0) H 05/30/17 18:17 Urine RBC (Auto) 12.0 /HPF (0.0-6.0) 05/30/17 18:17 U Epithel Cells (Auto) 4.0 /HPF (0-13.0) 05/30/17 18:17 Urine Bacteria (Auto) 4+ /HPF (Negative) 05/30/17 18:17 Urine WBC Clumps 2+ /HPF 05/30/17 18:17 Calcium Oxalate Crystal 1+ 05/30/17 18:17 Urine Mucus 3+ /HPF 05/30/17 18:17 Urine Creatinine 60.8 mg/dL (0.1-20.0) H 05/31/17 05:35 Urine Sodium 14 mmol/L 05/31/17 05:35 Fraction Sodium Excret 0.2 05/31/17 05:35
[2017-06-02] MEDS ORDERED: NACL 0.9% 1000 ML 1,000 ML IV ONE (10:00)
[2017-06-02] MEDS: LOVENOX SUB-Q SCH (10:18)
[2017-06-02] MEDS: PULMICORT IH SCH ×2 (10:22→20:15)
[2017-06-02] MEDS: BROVANA NEBU IH SCH ×2 (10:22→20:15)
[2017-06-02] MEDS: PLAVIX PO SCH (10:29)
[2017-06-02] MEDS ORDERED: KCL 40 MEQ in NACL 0.9% 500 ML 500 ML IV ONE (11:00)
[2017-06-02] MEDS ORDERED: KCL 10MEQ/100ML 10 MEQ/100 ML BAG IV SCH (11:00)
--- NOTE | 2017-06-02 11:43 | Progress Note ---
Assessment and Plan Impression * Acute renal failure. Most likely prerenal. Her baseline serum creatinine is approximately 0.9 * Hypernatremia. Most likely secondary to free water deficit * Encephalopathy * UTI * Sepsis Recommendations * Her urine appears to be concentrated with a specific gravity of 1.025. She has 2+ dipstick protein but no blood. Suspect prerenal azotemia. Her renal function is improving * Awaiting results of fractional excretion of sodium * Renal ultrasound negative except for renal cysts * Continue IV hydration * Administer free water via PEG tube * Avoid nephrotoxins * Monitor fluid status and electrolytes closely Subjective Date of service: 06/02/17 Interval history: Patient remains lethargic. Patient currently on 35% Ventimask. IV access is being attempted at this time. Her PEG tube is currently being used for tube feedings Objective - Vital Signs Vital signs: Vital Signs - 12hr 06/02/17 06/02/17 05:20 07:50 Temperature 100.1 F H 100.3 F H Pulse Rate 91 H Respiratory 18 24 Rate Blood Pressure 99/45 Blood Pressure 96/46 [Right] O2 Sat by Pulse 100 Oximetry - General Appearance General appearance: well-developed, well-nourished, appears stated age, other ( Ventimask in place) EENT: PERRL, mucous membranes moist Neck: no JVD, no thyromegaly, no carotid bruit, supple Respiratory: Present: Ronchi (bilateral scattered rhonchi) Cardiology: regular, normal heart rate, S1S2, no murmurs Gastrointestinal: normal, normoactive bowel sounds Integumentary: no rash, other (1+ edema) - Lab 06/02/17 07:28 06/02/17 07:28 Most recent lab results Calcium 8.0 mg/dL (8.4-10.2) L 06/02/17 07:28 Magnesium 3.50 mg/dL (1.7-2.3) H 05/30/17 17:46 Urine Creatinine 60.8 mg/dL (0.1-20.0) H 05/31/17 05:35 Urine Sodium 14 mmol/L 05/31/17 05:35
--- NOTE | 2017-06-02 12:08 | Progress Note ---
Assessment and Plan Assessment: 1) Sepsis: still fever, hypotension, worsening leukocytosis. Etiology most likely UTI +/ - ? pneumonia. CRP=26 2) UTI: history of E coli UTI 3) Sacral stage II - non infected 4) Toes ulcers- non infected 5) Chronic resp failure / COPD 6) Anemia 7) Penicillin allergy ? 8) DM - uncontrolled 9) Diarrhea ? r/o C diff Plan: -follow-up blood cultures -stop aztreonam -start meroepenem -continue vanco and flagyl for now -consider CT abd / chest -wound care consult -check C diff stool martha - pending -contact isolation Thank you Dr Salinas for your consultation, will follow up with you. Megan Caldwell MD Infectious Diseases Specialist [facility] M [phone] O [phone] Subjective Date of service: 06/02/17 Principal diagnosis: SIRS Interval history: Remains non verbal, agitated, tmax 100.3 Microbiology: Blood cultures: 05/30 ngtd Urine cultures: 05/30 10-100 mixed bacteria Current Antimicrobials: Aztreonam Vanco Objective - Exam Narrative Exam: General appearance: lethargic non verbal O2 mask in mild resp distress Eyes: anicteric sclerae, moist conjunctivae HENT: Atraumatic; oropharynx limited Neck: Trachea midline; supple, no thyromegaly or lymphadenopathy Lungs: rohit rhonchi , with increased respiratory effort and intercostal retractions CV: RRR Abdomen: Soft, non-tender Extremities: +peripheral edema contracted Skin: sacral decubitus stage II + necrotic tissue no purulence , toes 2-5 ulcers non infected Psych: unable to eval Neuro: non verbal Lines: No CVL / PICC - Constitutional Vitals: Vital Signs Temp Pulse Resp BP Pulse Ox 100.3 F H 91 H 24 96/46 100 06/02/17 07:50 06/02/17 07:50 06/02/17 07:50 06/02/17 07:50 06/02/17 07:50 Temperature -Last 24 Hours Temperature 100.3 F Temperature 100.1 F Temperature 99.5 F Temperature 100.3 F Temperature 98.0 F - Labs CBC & Chem 7: 06/02/17 07:28 06/02/17 07:39 Labs: Abnormal lab results 05/31/17 06/01/17 06/01/17 Range/Units 05:35 12:28 13:00 WBC (4.5-11.0) K/mm3 RBC (3.65-5.03) M/mm3 Hgb (10.1-14.3) gm/dl Hct (30.3-42.9) % MCV (79-97) fl RDW (13.2-15.2) % Sodium 168 H* (137-145) mmol/L Potassium (3.6-5.0) mmol/L Chloride (98-107) mmol/L BUN (7-17) mg/dL Glucose (65-100) mg/dL POC Glucose 209 H (70-105) Calcium (8.4-10.2) mg/dL Urine Creatinine 60.8 H (0.1-20.0) mg/dL 06/01/17 06/01/17 06/02/17 Range/Units 16:19 18:04 00:20 WBC (4.5-11.0) K/mm3 RBC (3.65-5.03) M/mm3 Hgb (10.1-14.3) gm/dl Hct (30.3-42.9) % MCV (79-97) fl RDW (13.2-15.2) % Sodium 167 H* (137-145) mmol/L Potassium (3.6-5.0) mmol/L Chloride (98-107) mmol/L BUN (7-17) mg/dL Glucose (65-100) mg/dL POC Glucose 324 H 474 H (70-105) Calcium (8.4-10.2) mg/dL Urine Creatinine (0.1-20.0) mg/dL 06/02/17 06/02/17 06/02/17 Range/Units 06:46 07:28 07:28 WBC 32.9 H (4.5-11.0) K/mm3 RBC 2.65 L (3.65-5.03) M/mm3 Hgb 8.2 L (10.1-14.3) gm/dl Hct 27.0 L (30.3-42.9) % MCV 102 H (79-97) fl RDW 19.3 H (13.2-15.2) % Sodium 165 H* (137-145) mmol/L Potassium 2.9 L* D (3.6-5.0) mmol/L Chloride 125.1 H (98-107) mmol/L BUN 90 H (7-17) mg/dL Glucose 346 H (65-100) mg/dL POC Glucose 380 H (70-105) Calcium 7.9 L (8.4-10.2) mg/dL Urine Creatinine (0.1-20.0) mg/dL 06/02/17 06/02/17 06/02/17 Range/Units 07:28 07:39 08:43 WBC (4.5-11.0) K/mm3 RBC (3.65-5.03) M/mm3 Hgb (10.1-14.3) gm/dl Hct (30.3-42.9) % MCV (79-97) fl RDW (13.2-15.2) % Sodium 166 H* 166 H* (137-145) mmol/L Potassium 3.0 L (3.6-5.0) mmol/L Chloride 124.3 H (98-107) mmol/L BUN 90 H (7-17) mg/dL Glucose 344 H (65-100) mg/dL POC Glucose 352 H (70-105) Calcium 8.0 L (8.4-10.2) mg/dL Urine Creatinine (0.1-20.0) mg/dL
[2017-06-02] MEDS ORDERED: PROVENTIL IH ONE (13:40)
[2017-06-02] MEDS: MERREM 1,000 MG in NACL 0.9% 20 ML IV SCH ×2 (14:58→22:25)
[2017-06-02] MEDS ORDERED: PROVENTIL IH PRN (15:06)
[2017-06-02] MEDS ORDERED: LEVEMIR SUB-Q SCH (22:00)
[2017-06-02] MEDS: SINGULAIR PO SCH (22:25)
[2017-06-03] MEDS: FLAGYL 500 MG/100 ML 500 MG/100 ML BAG IV SCH ×4 (00:10→17:22)
[2017-06-03] MEDS: NOVOLOG SUB-Q SCH ×5 (04:22→18:00)
[2017-06-03 04:45] LABS: Hemoglobin 7.9 gm/dl (10.1-14.3); Mean Corpuscular HGB Conc 30 % (30-34); Mean Corpuscular Hemoglobin 31 pg (28-32); Mean Corpuscular Volume 103 fl (79-97); Platelet Count 262 K/mm3 (140-440); Red Blood Count 2.54 M/mm3 (3.65-5.03)
[2017-06-03 05:03] LABS: Anion Gap 14 mmol/L; BUN/Creatinine Ratio 85; Blood Urea Nitrogen 68 mg/dL (7-17); Calcium 7.9 mg/dL (8.4-10.2); Carbon Dioxide 24 mmol/L (22-30); Chloride 128.1 mmol/L (98-107); Glucose 308 mg/dL (65-100); Potassium 3.1 mmol/L (3.6-5.0)
[2017-06-03 05:06] LABS: White Blood Count 27.7 K/mm3 (4.5-11.0)
[2017-06-03 05:22] LABS: Sodium 163 mmol/L (137-145)
[2017-06-03] MEDS: MERREM 1,000 MG in NACL 0.9% 20 ML IV SCH ×3 (06:45→23:19)
[2017-06-03] MEDS: VANCOMYCIN 1,250 MG in NACL 0.9% 250ML 250 ML IV SCH ×2 (08:12→23:19)
--- NOTE | 2017-06-03 08:36 | Progress Note ---
Assessment and Plan Assessment and plan: Patient is a 81-year-old woman with hx of 2 cardiac arrest in 2016. It appears she was discharged to Hospice on 04/19/17 (Dr. Feng responsible for discharge summary) she return yesterday from [facility] and [place] with AMS. A few months ago during the above mentioned When she had COPD exacerbation requiring intubation. She had multiple cardiac arrest and resultant anoxic brain injury. Patient was discharged to hospice. She improved on [facility] from hospice and sent to senior care. Patient has a peg tube. She is mostly bed- bound. She's on the grand Rehabilitation. As for her daughter she's been able to get on the exercise bike for 15 seconds. She has not walked. She is able to communicate with only a few words. Since being in the senior care she developed a secret decubitus. And ulcers on her left toes. She's brought in because she was more confused more altered and had very elevated glucose. Glucose as high as 500. THe NH has been rx her with levaquin for about 10 days for presumed UTI. Upon arrival in the ER she was hypotensive requiring multiple normal saline for blood pressure improve. Per nursing documentation Staff member of [facility] was called to inquire about baseline mental status. Patient is alert without verbal responses. According to the physical therapist, the patient is lethargic, non-verbal. Can not use her hands at all. Total assist for all aspects of care. Would respond to pain stimuli. Has history of having chewed on her tongue to the point of injury. Patient appears to be at baseline. Hypotension, hypovolemia, improved. Possible septic shock. Give IVF Septic Shock: Improving,. ID input noted. Severe hypernatremia: consult nephrology and input noted. PEG was malfunctioning but now functioning, still elevated, continue free water fluids adjust to q4hrs. Sepsis/UTI: hX OF ECOLI. ON Iv MERREM abx, follow cultures. NO NEW DIARRHEA. Hypokalemia: replace, will also give Magnesium. DION/Vasomotor nephropathy-likely due to dehydration and ATN-continue IVF COPD with chronic hypoxic respiratory failure, oxygen dependent, stable, not in exacerbation Multiple decubiti pressure ulcers: see wound care pictures, Sacral and Left 2nd to 5th toes ulcers decub, POA. Continue wound management DM type 2, uncontrolled: continue long acting insuli, was worse with D5W, NOW STOPPED, INCREASE BASAL INSULIN Anoxic Brain injury: Appear to be at baseline per SNF nursing staff, although contradicts the Daughters voicing that patient was doing exercise bike, on rediscussion with the daughter she acknowledges that but stated that the patient was improving at some point then declined. 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 Recheck head CT Anemia DNR poor prognosis Patient seen with nursing staff. Plan discussed with Integration Developer call family to discuss hospice-SPOKE TO DAUGHTER AND THEY ARE DISCUSSING WITH THE REST . The high probability of a clinically significant, sudden or life threatening deterioration of the [NEUROLOGY, NEPHROLOGY] system(s) required my full and direct attention, intervention and personal management. The aggregate critical care time was [35] minutes. This time is in addition to time spent performing reported procedures but includes the following: [X] Data Review and interpretation [X] Patient assessment and monitoring of vital signs [X] Documentation [X] Medication orders and management History Interval history: Patient seen and examined, awake, but not following commands., no diarrhea per nursing. Hospitalist Physical - Physical exam Narrative exam: GEN: Ill-appearing, chronic debilitated, awake but confused HEENT: NCAT, EOMI, PERRL, OP Clear NECK: supple, no adenopathy, no thyromegaly, no JVD CVS/HEART: RRR, NORMAL S1S2, NO JVD, pulses present bilaterally CHEST/LUNGS: Symmetrical chest expansion, good air entry bilaterally GI/Abdomen: soft, NTND, good bowel sounds, no guarding or rebound /Bladder: no suprapubic tenderness, no CVA or paraspinal tenderness EXT/Skin: no c/c/e, sacral decub MSK: FROM x 4 Neuro: not following commands, no new focal deficits Psych: unable to assess - Constitutional Vitals: Temp Pulse Resp BP Pulse Ox 98.4 F 86 24 117/46 99 06/03/17 08:15 06/03/17 08:15 06/03/17 08:15 06/03/17 08:15 06/03/17 08:15 General appearance: Present: no acute distress, well-nourished Results - Labs CBC & Chem 7: 06/03/17 04:26 06/03/17 04:26 Labs: Laboratory Last Values WBC 27.7 K/mm3 (4.5-11.0) H 06/03/17 04:26 RBC 2.54 M/mm3 (3.65-5.03) L 06/03/17 04:26 Hgb 7.9 gm/dl (10.1-14.3) L 06/03/17 04:26 Hct 26.0 % (30.3-42.9) L 06/03/17 04:26 MCV 103 fl (79-97) H 06/03/17 04:26 MCH 31 pg (28-32) 06/03/17 04:26 MCHC 30 % (30-34) 06/03/17 04:26 RDW 19.0 % (13.2-15.2) H 06/03/17 04:26 Plt Count 262 K/mm3 (140-440) 06/03/17 04:26 Add Manual Diff Complete 05/31/17 07:23 Total Counted 200 05/31/17 07:23 Seg Neuts % (Manual) 80.5 % (40.0-70.0) H 05/31/17 07:23 Band Neutrophils % 9.0 % 05/31/17 07:23 Lymphocytes % (Manual) 7.0 % (13.4-35.0) L 05/31/17 07:23 Reactive Lymphs % (Man) 0 % 05/31/17 07:23 Monocytes % (Manual) 3.5 % (0.0-7.3) 05/31/17 07:23 Eosinophils % (Manual) 0 % (0.0-4.3) 05/31/17 07:23 Basophils % (Manual) 0 % (0.0-1.8) 05/31/17 07:23 Metamyelocytes % 0 % 05/31/17 07:23 Myelocytes % 0 % 05/31/17 07:23 Promyelocytes % 0 % 05/31/17 07:23 Blast Cells % 0 % 05/31/17 07:23 Nucleated RBC % 2.5 % (0.0-0.9) H 05/31/17 07:23 Seg Neutrophils # Man 17.8 K/mm3 (1.8-7.7) H 05/31/17 07:23 Band Neutrophils # 2.0 K/mm3 05/31/17 07:23 Lymphocytes # (Manual) 1.5 K/mm3 (1.2-5.4) 05/31/17 07:23 Abs React Lymphs (Man) 0.0 K/mm3 05/31/17 07:23 Monocytes # (Manual) 0.8 K/mm3 (0.0-0.8) 05/31/17 07:23 Eosinophils # (Manual) 0.0 K/mm3 (0.0-0.4) 05/31/17 07:23 Basophils # (Manual) 0.0 K/mm3 (0.0-0.1) 05/31/17 07:23 Metamyelocytes # 0.0 K/mm3 05/31/17 07:23 Myelocytes # 0.0 K/mm3 05/31/17 07:23 Promyelocytes # 0.0 K/mm3 05/31/17 07:23 Blast Cells # 0.0 K/mm3 05/31/17 07:23 WBC Morphology Not Reportable 05/31/17 07:23 Hypersegmented Neuts Not Reportable 05/31/17 07:23 Hyposegmented Neuts Not Reportable 05/31/17 07:23 Hypogranular Neuts Not Reportable 05/31/17 07:23 Smudge Cells Not Reportable 05/31/17 07:23 Toxic Granulation Not Reportable 05/31/17 07:23 Toxic Vacuolation Not Reportable 05/31/17 07:23 Dohle Bodies Not Reportable 05/31/17 07:23 Pelger-Huet Anomaly Not Reportable 05/31/17 07:23 Carlos Rods Not Reportable 05/31/17 07:23 Platelet Estimate Appears normal 05/31/17 07:23 Clumped Platelets Not Reportable 05/31/17 07:23 Plt Clumps, EDTA Not Reportable 05/31/17 07:23 Large Platelets Not Reportable 05/31/17 07:23 Giant Platelets Not Reportable 05/31/17 07:23 Platelet Satelliting Not Reportable 05/31/17 07:23 Plt Morphology Comment Not Reportable 05/31/17 07:23 RBC Morphology Not Reportable 05/31/17 07:23 Dimorphic RBCs Not Reportable 05/31/17 07:23 Polychromasia Few 05/31/17 07:23 Hypochromasia 1+ 05/31/17 07:23 Poikilocytosis Few 05/31/17 07:23 Anisocytosis 1+ 05/31/17 07:23 Microcytosis Not Reportable 05/31/17 07:23 Macrocytosis Not Reportable 05/31/17 07:23 Spherocytes Not Reportable 05/31/17 07:23 Pappenheimer Bodies Not Reportable 05/31/17 07:23 Sickle Cells Not Reportable 05/31/17 07:23 Target Cells Not Reportable 05/31/17 07:23 Tear Drop Cells Not Reportable 05/31/17 07:23 Ovalocytes 1+ 05/31/17 07:23 Helmet Cells Not Reportable 05/31/17 07:23 Ortiz-Gabbs Bodies Not Reportable 05/31/17 07:23 [place] Rings Not Reportable 05/31/17 07:23 Wilner Cells Not Reportable 05/31/17 07:23 Bite Cells Not Reportable 05/31/17 07:23 Crenated Cell Not Reportable 05/31/17 07:23 Elliptocytes Not Reportable 05/31/17 07:23 Acanthocytes (Spur) Rare 05/31/17 07:23 Rouleaux Not Reportable 05/31/17 07:23 Hemoglobin C Crystals Not Reportable 05/31/17 07:23 Schistocytes Few 05/31/17 07:23 Malaria parasites Not Reportable 05/31/17 07:23 Rhys Bodies Not Reportable 05/31/17 07:23 Hem Pathologist Commnt No 05/31/17 07:23 PT 15.8 Sec. (12.2-14.9) H 05/30/17 17:46 INR 1.20 (0.87-1.13) H 05/30/17 17:46 APTT 34.0 Sec. (24.2-36.6) 05/30/17 17:46 POC ABG pH 7.498 (7.35-7.45) H 05/30/17 17:37 POC ABG pCO2 45.3 (35-45) H 05/30/17 17:37 POC ABG pO2 248 (80-105) H 05/30/17 17:37 POC ABG HCO3 35.1 05/30/17 17:37 POC ABG Total CO2 36 05/30/17 17:37 POC ABG O2 Sat 100 05/30/17 17:37 POC ABG Base Excess 12 05/30/17 17:37 VBG pH 7.290 (7.320-7.420) L 05/30/17 17:46 FiO2 100 % 05/30/17 17:37 Sodium 163 mmol/L (137-145) H* 06/03/17 04:26 Potassium 3.1 mmol/L (3.6-5.0) L 06/03/17 04:26 Chloride 128.1 mmol/L (98-107) H 06/03/17 04:26 Carbon Dioxide 24 mmol/L (22-30) 06/03/17 04:26 Anion Gap 14 mmol/L 06/03/17 04:26 BUN 68 mg/dL (7-17) H 06/03/17 04:26 Creatinine 0.8 mg/dL (0.7-1.2) 06/03/17 04:26 Estimated GFR > 60 ml/min 06/03/17 04:26 BUN/Creatinine Ratio 85 % 06/03/17 04:26 Glucose 308 mg/dL (65-100) H 06/03/17 04:26 POC Glucose 228 (70-105) H 06/02/17 22:32 Lactic Acid 2.10 mmol/L (0.7-2.0) H* 05/30/17 20:35 Calcium 7.9 mg/dL (8.4-10.2) L 06/03/17 04:26 Magnesium 3.50 mg/dL (1.7-2.3) H 05/30/17 17:46 Total Bilirubin 0.20 mg/dL (0.1-1.2) 05/30/17 17:46 AST 65 units/L (5-40) H 05/30/17 17:46 ALT 43 units/L (7-56) 05/30/17 17:46 Alkaline Phosphatase 114 units/L (35-129) 05/30/17 17:46 Total Creatine Kinase 1235 units/L (30-135) H 05/30/17 20:35 CK-MB (CK-2) 4.6 ng/mL (0.0-4.0) H 05/30/17 20:35 CK-MB (CK-2) Rel Index 0.3 (0-4) 05/30/17 20:35 Troponin T 0.181 ng/mL (0.00-0.029) H* 05/30/17 20:35 C-Reactive Protein 28.70 mg/dL (0.00-1.30) H 06/02/17 14:14 Total Protein 6.7 g/dL (6.3-8.2) 05/30/17 17:46 Albumin 3.0 g/dL (3.9-5) L 05/30/17 17:46 Albumin/Globulin Ratio 0.8 % 05/30/17 17:46 Triglycerides 241 mg/dL (2-149) H 05/30/17 17:46 Cholesterol 107 mg/dL (50-199) 05/30/17 17:46 LDL Cholesterol Direct 20 mg/dL (50-130) L 05/30/17 17:46 HDL Cholesterol 39 mg/dL (40-59) L 05/30/17 17:46 Cholesterol/HDL Ratio 2.74 % 05/30/17 17:46 Urine Color Madeline (Yellow) 05/30/17 18:17 Urine Turbidity Clear (Clear) 05/30/17 18:17 Urine pH 5.0 (5.0-7.0) 05/30/17 18:17 Ur Specific Kathleen 1.025 (1.003-1.030) 05/30/17 18:17 Urine Protein 100 mg/dl mg/dL (Negative) 05/30/17 18:17 Urine Glucose (UA) 50 mg/dL (Negative) 05/30/17 18:17 Urine Ketones Neg mg/dL (Negative) 05/30/17 18:17 Urine Blood Neg (Negative) 05/30/17 18:17 Urine Nitrite Neg (Negative) 05/30/17 18:17 Urine Bilirubin Neg (Negative) 05/30/17 18:17 Urine Urobilinogen 2.0 mg/dL (<2.0) 05/30/17 18:17 Ur Leukocyte Esterase Lg (Negative) 05/30/17 18:17 Urine WBC (Auto) 73.0 /HPF (0.0-6.0) H 05/30/17 18:17 Urine RBC (Auto) 12.0 /HPF (0.0-6.0) 05/30/17 18:17 U Epithel Cells (Auto) 4.0 /HPF (0-13.0) 05/30/17 18:17 Urine Bacteria (Auto) 4+ /HPF (Negative) 05/30/17 18:17 Urine WBC Clumps 2+ /HPF 05/30/17 18:17 Calcium Oxalate Crystal 1+ 05/30/17 18:17 Urine Mucus 3+ /HPF 05/30/17 18:17 Urine Creatinine 60.8 mg/dL (0.1-20.0) H 05/31/17 05:35 Urine Sodium 14 mmol/L 05/31/17 05:35 Fraction Sodium Excret 0.2 05/31/17 05:35
[2017-06-03] MEDS ORDERED: MAGNESIUM SULFATE IV ONE (08:37)
[2017-06-03] MEDS: BROVANA NEBU IH SCH ×2 (09:24→20:45)
[2017-06-03] MEDS: PULMICORT IH SCH ×2 (09:24→20:45)
--- NOTE | 2017-06-03 10:28 | Progress Note ---
Assessment and Plan Impression * Acute renal failure. Most likely prerenal. Her baseline serum creatinine is approximately 0.9 * Hypernatremia. Most likely secondary to free water deficit * Encephalopathy * UTI * Sepsis Recommendations * Her urine appears to be concentrated with a specific gravity of 1.025. She has 2+ dipstick protein but no blood. Suspect prerenal azotemia. Her renal function is improving * fractional excretion of sodium is 0.2% * Renal ultrasound negative except for renal cysts * Continue IV hydration * Administer free water via PEG tube * Patient remains hypernatremic. Shall check her urine osmolality as well Subjective Date of service: 06/03/17 Principal diagnosis: SIRS Interval history: Patient remains lethargic. Currently on 35% Ventimask. Objective - Vital Signs Vital signs: Vital Signs - 12hr 06/03/17 06/03/17 06/03/17 05:04 05:05 08:15 Temperature 98.2 F 98.4 F Pulse Rate 85 86 86 Respiratory 20 24 Rate Blood Pressure 111/59 117/46 O2 Sat by Pulse 100 100 99 Oximetry - General Appearance General appearance: well-developed, well-nourished, appears stated age EENT: PERRL, mucous membranes moist Neck: no JVD, no thyromegaly, no carotid bruit, supple Respiratory: Present: Ronchi (bilateral scattered rhonchi) Cardiology: regular, normal heart rate Gastrointestinal: normoactive bowel sounds, other (PEG tube in place) Integumentary: other (1+ edema) - Lab 06/03/17 04:26 06/03/17 04:26 Most recent lab results Calcium 7.9 mg/dL (8.4-10.2) L 06/03/17 04:26 Magnesium 3.50 mg/dL (1.7-2.3) H 05/30/17 17:46 Urine Creatinine 60.8 mg/dL (0.1-20.0) H 05/31/17 05:35 Urine Sodium 14 mmol/L 05/31/17 05:35
[2017-06-03] MEDS: PLAVIX PO SCH (11:52)
[2017-06-03] MEDS: KCL 10MEQ/100ML 10 MEQ/100 ML BAG IV SCH ×4 (11:53→16:09)
[2017-06-03] MEDS: LOVENOX SUB-Q SCH (13:10)
--- NOTE | 2017-06-03 15:21 | Progress Note ---
Assessment and Plan Assessment: 1) Sepsis: fever better, hypotension better, leukocytosis better. Etiology most likely UTI +/ - ? pneumonia. CRP=26 2) UTI: history of E coli UTI 3) Sacral stage II - non infected 4) Toes ulcers- non infected 5) Chronic resp failure / COPD 6) Anemia 7) Penicillin allergy ? 8) DM - uncontrolled 9) Diarrhea ? r/o C diff Plan: -follow-up blood cultures -continue meropenem, vanco and flagyl for now -wound care consult -check C diff stool martha - pending -contact isolation Thank you Dr Salinas for your consultation, will follow up with you. Megan Caldwell MD Infectious Diseases Specialist [facility] M [phone] O [phone] Subjective Date of service: 06/03/17 Principal diagnosis: SIRS Interval history: Remains non verbal, agitated, fever better Microbiology: Blood cultures: 05/30 ngtd Urine cultures: 05/30 10-100 mixed bacteria Current Antimicrobials: meropenem flagyl Vanco Previous Antimicrobials: Aztreonam Objective - Exam Narrative Exam: General appearance: lethargic non verbal O2 mask in mild resp distress Eyes: anicteric sclerae, moist conjunctivae HENT: Atraumatic; oropharynx limited Neck: Trachea midline; supple, no thyromegaly or lymphadenopathy Lungs: rohit rhonchi , with increased respiratory effort and intercostal retractions CV: RRR Abdomen: Soft, non-tender Extremities: +peripheral edema contracted Skin: sacral decubitus stage II + necrotic tissue no purulence , toes 2-5 ulcers non infected Psych: unable to eval Neuro: non verbal Lines: No CVL / PICC - Constitutional Vitals: Vital Signs Temp Pulse Resp BP Pulse Ox 98.4 F 86 24 117/46 99 06/03/17 08:15 06/03/17 08:15 06/03/17 08:15 06/03/17 08:15 06/03/17 08:15 Temperature -Last 24 Hours Temperature 98.4 F Temperature 98.2 F Temperature 97.9 F Temperature 98.6 F - Labs CBC & Chem 7: 06/03/17 04:26 06/03/17 04:26 Labs: Abnormal lab results 06/02/17 06/02/17 06/02/17 Range/Units 14:14 14:14 16:33 WBC (4.5-11.0) K/mm3 RBC (3.65-5.03) M/mm3 Hgb (10.1-14.3) gm/dl Hct (30.3-42.9) % MCV (79-97) fl RDW (13.2-15.2) % Sodium 162 H* (137-145) mmol/L Potassium (3.6-5.0) mmol/L Chloride (98-107) mmol/L BUN (7-17) mg/dL Glucose (65-100) mg/dL POC Glucose 304 H (70-105) Calcium (8.4-10.2) mg/dL C-Reactive Protein 28.70 H (0.00-1.30) mg/dL 06/02/17 06/03/17 06/03/17 Range/Units 22:32 04:26 04:26 WBC 27.7 H (4.5-11.0) K/mm3 RBC 2.54 L (3.65-5.03) M/mm3 Hgb 7.9 L (10.1-14.3) gm/dl Hct 26.0 L (30.3-42.9) % MCV 103 H (79-97) fl RDW 19.0 H (13.2-15.2) % Sodium 163 H* (137-145) mmol/L Potassium 3.1 L (3.6-5.0) mmol/L Chloride 128.1 H (98-107) mmol/L BUN 68 H (7-17) mg/dL Glucose 308 H (65-100) mg/dL POC Glucose 228 H (70-105) Calcium 7.9 L (8.4-10.2) mg/dL C-Reactive Protein (0.00-1.30) mg/dL 06/03/17 Range/Units 12:03 WBC (4.5-11.0) K/mm3 RBC (3.65-5.03) M/mm3 Hgb (10.1-14.3) gm/dl Hct (30.3-42.9) % MCV (79-97) fl RDW (13.2-15.2) % Sodium (137-145) mmol/L Potassium (3.6-5.0) mmol/L Chloride (98-107) mmol/L BUN (7-17) mg/dL Glucose (65-100) mg/dL POC Glucose 210 H (70-105) Calcium (8.4-10.2) mg/dL C-Reactive Protein (0.00-1.30) mg/dL
[2017-06-03] MEDS: LEVEMIR SUB-Q SCH ×2 (22:55→23:25)
[2017-06-03] MEDS: SINGULAIR PO SCH (23:18)
[2017-06-04] MEDS: NOVOLOG SUB-Q SCH ×3 (00:55→12:50)
[2017-06-04] MEDS: FLAGYL 500 MG/100 ML 500 MG/100 ML BAG IV SCH ×3 (00:55→15:43)
[2017-06-04 05:09] LABS: Hematocrit 27.3 % (30.3-42.9); Hemoglobin 8.3 gm/dl (10.1-14.3); Mean Corpuscular HGB Conc 30 % (30-34); Mean Corpuscular Hemoglobin 31 pg (28-32); Mean Corpuscular Volume 103 fl (79-97); Red Blood Count 2.65 M/mm3 (3.65-5.03); Red Cell Distribution Width 19.8 % (13.2-15.2)
[2017-06-04 05:18] LABS: Platelet Count 268 K/mm3 (140-440); White Blood Count 27.3 K/mm3 (4.5-11.0)
[2017-06-04] MEDS: MERREM 1,000 MG in NACL 0.9% 20 ML IV SCH ×2 (05:35→14:00)
[2017-06-04 05:37] LABS: Potassium TNR mmol/L (3.6-5.0); Sodium TNR mmol/L (137-145)
[2017-06-04 05:38] LABS: Chloride TNR mmol/L (98-107)
[2017-06-04 05:39] LABS: Anion Gap TNR mmol/L; BUN/Creatinine Ratio TNR; Blood Urea Nitrogen TNR mg/dL (7-17); Carbon Dioxide TNR mmol/L (22-30); Glucose TNR mg/dL (65-100)
[2017-06-04 05:40] LABS: Calcium TNR mg/dL (8.4-10.2)
[2017-06-04 07:28] LABS: BUN/Creatinine Ratio 83; Blood Urea Nitrogen 50 mg/dL (7-17); Carbon Dioxide 25 mmol/L (22-30); Chloride 128.2 mmol/L (98-107); Glucose 283 mg/dL (65-100)
[2017-06-04 08:12] LABS: Anion Gap 18 mmol/L; Potassium 5.4 mmol/L (3.6-5.0); Sodium 166 mmol/L (137-145)
--- NOTE | 2017-06-04 08:29 | Discharge Summary ---
Providers - Providers Date of Admission: 05/30/17 21:30 Attending physician: RUSLAN WILKS MD 05/31/17 00:25 Consult to Dietitian/Nutrition [CONS] Routine Physician Instructions: Reason For Exam: Reason for Consult: Write/Manage Tube Feeding 05/31/17 00:26 Consult to Physician [CONS] Routine Consulting Provider: KAMLA MCCAULEY Reason For Exam: sepsis Place consult to:: Notified:: Phone number called:: [phone] Was contact made?: Yes If yes, spoke with:: Time called:: 08:42 Comment:: SUSIE Consult to Wound/ET Nurse [CONS] Routine Reason For Exam: wound eval 05/31/17 09:46 Occupational Therapy Evaluate and Treat [CONS] Routine Comment: Reason For Exam: debility Physical Therapy Evaluation and Treat [CONS] Routine Comment: Reason For Exam: debility Speech Therapy Evaluation and Treat [CONS] Routine Reason For Exam: dysphagia 06/02/17 15:44 Physical Therapy Evaluation and Treat [CONS] Routine Comment: Reason For Exam: Debility Primary care physician: GASKET FORMER Hospitalization Reason for admission: ams Condition: Stable Hospital course: Patient is a 81-year-old woman with hx of 2 cardiac arrest in 2016. It appears she was discharged to Hospice on 04/19/17 (Dr. Feng responsible for discharge summary) she return yesterday from [facility] and [place] with A[place]. A few months ago during the above mentioned When she had COPD exacerbation requiring intubation. She had multiple cardiac arrest and resultant anoxic brain injury. Patient was discharged to hospice. She improved on [facility] from hospice and sent to halfway. Patient has a peg tube. She is mostly bed- bound. She's on the grand Rehabilitation. As for her daughter she's been able to get on the exercise bike for 15 seconds. She has not walked. She is able to communicate with only a few words. Since being in the halfway she developed a secret decubitus. And ulcers on her left toes. She's brought in because she was more confused more altered and had very elevated glucose. Glucose as high as 500. THe NH has been rx her with levaquin for about 10 days for presumed UTI. Upon arrival in the ER she was hypotensive requiring multiple normal saline for blood pressure improve. Patient despite all efforts, antibiotics, free water replacement, patient did not improve. family agreed to have patient placed on hospice. Patient was seen by [facility]. Her mental status did not improve. We discussed with the facility Per nursing documentation Staff member of [facility] was called to inquire about baseline mental status. Patient is alert without verbal responses. According to the physical therapist, the patient is lethargic, non-verbal. Can not use her hands at all. Total assist for all aspects of care. Would respond to pain stimuli. Has history of having chewed on her tongue to the point of injury. Appear to be at baseline per SNF nursing staff, although contradicts the Daughters voicing that patient was doing exercise bike, on rediscussion with the daughter she acknowledges that but stated that the patient was improving at some point then declined. She at this point is having higher residual of tube feeds and also not improving hypernatremia. CT brain was negative for acute event. Daughter states that patient would never have wanted tube feeds and so much life sustaining measures that were started in the past, but because they could not find the paper to prove it, these things were implemented, according to the conversation she had with Nursing staff. She signed the papers for hospice. 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 Recheck head CT Anemia Disposition: CT-[id number] HOSPICE ([facility]) Time spent for discharge: 35 mins Core Measure Documentation - Palliative Care Palliative Care/ Comfort Measures: Hospice Care - Core Measures Any of the following diagnoses?: none - VTE Discharge Requirements Deep Vein Thrombosis/Pulmonary Embolism Present on Admission: No Exam - Physical Exam Narrative exam: GEN: Ill-appearing, chronic debilitated, awake but confused HEENT: NCAT, EOMI, PERRL, OP Clear NECK: supple, no adenopathy, no thyromegaly, no JVD CVS/HEART: RRR, NORMAL S1S2, NO JVD, pulses present bilaterally CHEST/LUNGS: Symmetrical chest expansion, good air entry bilaterally GI/Abdomen: soft, NTND, good bowel sounds, no guarding or rebound /Bladder: no suprapubic tenderness, no CVA or paraspinal tenderness EXT/Skin: no c/c/e, sacral decub MSK: FROM x 4 Neuro: not following commands, no new focal deficits Psych: unable to assess - Constitutional Vitals: Temp Pulse Resp BP Pulse Ox 99.1 F 87 18 130/49 100 06/04/17 07:29 06/04/17 07:30 06/04/17 07:29 06/04/17 07:29 06/04/17 07:30 Plan Activity: fall precautions Diet: per dietitian instruction Special Instructions: record daily weights, record daily BP diary Additional Instructions: follow up per Hospice Follow up with: PRIMARY CAREMD [Primary Care Provider] - 7 Days
[2017-06-04] MEDS: PULMICORT IH SCH ×2 (09:39→09:40)
[2017-06-04] MEDS: BROVANA NEBU IH SCH (09:41)
[2017-06-04] MEDS: PLAVIX PO SCH (10:00)
--- NOTE | 2017-06-04 10:10 | Progress Note ---
Assessment and Plan Impression * Acute renal failure. Most likely prerenal. Her baseline serum creatinine is approximately 0.9 * Hypernatremia. Most likely secondary to free water deficit * Encephalopathy * UTI * Sepsis Recommendations * Her renal function seems to have improved. She is still hypernatremic. Urine also quality is highly to his consistent with free water deficit * fractional excretion of sodium is 0.2% * Renal ultrasound negative except for renal cysts * Her overall prognosis is grim. Agree with hospice/comfort care Subjective Date of service: 06/04/17 Principal diagnosis: SIRS Interval history: Patient remains lethargic. Currently on 50% Ventimask. No IV fluid infusing. No feeding going through her PEG tube either. Spoke with patient's nurse. She had leakage of feeding around her PEG tube Site. Family does not wish any further intervention. She is going to go to hospice for comfort care Objective - Vital Signs Vital signs: Vital Signs - 12hr 06/03/17 06/04/17 06/04/17 22:48 05:00 05:31 Temperature 99.1 F Pulse Rate 83 60 Pulse Rate [ Anterior Bilateral Throughout] Respiratory 20 20 Rate Respiratory Rate [Anterior Bilateral Throughout] Blood Pressure 107/45 O2 Sat by Pulse 90 90 90 Oximetry 06/04/17 06/04/17 06/04/17 05:33 07:29 07:30 Temperature 99.1 F Pulse Rate 86 88 87 Pulse Rate [ Anterior Bilateral Throughout] Respiratory 18 Rate Respiratory Rate [Anterior Bilateral Throughout] Blood Pressure 130/49 O2 Sat by Pulse 100 100 100 Oximetry 06/04/17 06/04/17 06/04/17 09:32 09:42 09:48 Temperature Pulse Rate Pulse Rate [ 80 92 H Anterior Bilateral Throughout] Respiratory Rate Respiratory 18 19 Rate [Anterior Bilateral Throughout] Blood Pressure O2 Sat by Pulse 100 Oximetry - General Appearance General appearance: well-developed, well-nourished, appears stated age, other ( Ventimask in place) EENT: PERRL, mucous membranes moist Neck: no JVD, no thyromegaly, no carotid bruit, supple Respiratory: Present: Ronchi (bilateral scattered rhonchi) Cardiology: regular, normal heart rate Gastrointestinal: normoactive bowel sounds, other (PEG tube in place) Integumentary: other (1+ edema) - Lab 06/04/17 04:28 06/04/17 06:50 Most recent lab results Calcium 8.0 mg/dL (8.4-10.2) L 06/04/17 06:50 Magnesium 3.50 mg/dL (1.7-2.3) H 05/30/17 17:46 Urine Creatinine 60.8 mg/dL (0.1-20.0) H 05/31/17 05:35 Urine Sodium 14 mmol/L 05/31/17 05:35
[2017-06-04] MEDS: LOVENOX SUB-Q SCH (11:58)
[2017-06-04] MEDS ORDERED: PLAVIX FEEDTUBE SCH (12:30)
[2017-06-04 14:35] VITALS: BP 135/62
== END 2017-06-04 16:45 | disposition hospice, inpatient (51) | DRG 871 ==
LOC: ED 15:52 → 3A 21:30 → 2B-ACE 22:25
PROVIDERS: ADMIT Internal Medicine; ATTEND Internal Medicine
PROC: 4A033R1 Measurement of Arterial Saturation, Peripheral, Percutaneous Approach (ICD-10-PCS; principal; 2017-05-30)
DX: A41.9 Sepsis, unspecified organism (principal); N17.0 Acute kidney failure with tubular necrosis; G92 Toxic encephalopathy; R65.21 Severe sepsis with septic shock; N39.0 Urinary tract infection, site not specified; E87.0 Hyperosmolality and hypernatremia; G93.1 Anoxic brain damage, not elsewhere classified; J96.11 Chronic respiratory failure with hypoxia; J44.1 Chronic obstructive pulmonary disease with (acute) exacerbation; L97.529 Non-pressure chronic ulcer of other part of left foot with unspecified severity; I25.10 Atherosclerotic heart disease of native coronary artery without angina pectoris; E86.1 Hypovolemia; L89.152 Pressure ulcer of sacral region, stage 2; D64.9 Anemia, unspecified; I11.0 Hypertensive heart disease with heart failure; I50.9 Heart failure, unspecified; Z66 Do not resuscitate; E78.5 Hyperlipidemia, unspecified; I27.20 Pulmonary hypertension, unspecified; E86.0 Dehydration; E87.6 Hypokalemia; E11.65 Type 2 diabetes mellitus with hyperglycemia; Z88.0 Allergy status to penicillin; Z83.3 Family history of diabetes mellitus; Z79.4 Long term (current) use of insulin; Z95.1 Presence of aortocoronary bypass graft; Z88.8 Allergy status to other drugs, medicaments and biological substances
CPT/HCPCS: 36415; 70450; 71010; 76770; 80048; 80053; 80061; 81001; 82140; 82550; 82553; 82565; 82570; 82803; 82805; 82962; 83735; 83935; 84295; 84300; 84484; 85007; 85025; 85027; 85610; 85730; 86140; 87040; 87086; 93005; 93010; 94640; 94760; 96361; 96365; 96366; 96368; 96375; A9270-GY; G8996-GN; G8997-GN; G8998-GN; J1580; J1650; J1815; J1818; J1956; J2185; J2270; J3370; J3475; J3480; J7030; J7040; J7050; J7070